=== PATIENT | female | born 1995 | race Caucasian/White ===

== ENCOUNTER → 2016-06-08 | Outpatient (CLI) | payer OTHER ==
[2016-06-08 13:20] LABS: CREATININE RESULT 0.48 mg/dL (0.52-1.25)
== END ==
LOC: OD 12:10
PROVIDERS: ATTEND Registered Nurse Women's Health Care, Ambulatory
DX: O26.839 Pregnancy related renal disease, unspecified trimester (principal); N28.9 Disorder of kidney and ureter, unspecified
CPT/HCPCS: 36415; 82565

== ENCOUNTER → 2016-06-18 | Outpatient (CLI) | payer OTHER ==
[2016-06-18 15:24] LABS: URINE BARBITURATES SCREEN NEGATIVE; URINE METHADONE SCREEN NEGATIVE; URINE OPIATES LOW NEGATIVE; URINE PHENCYCLIDINE SCREEN NEGATIVE
[2016-06-18 15:26] LABS: APPEARANCE,URINE SLIGHTLY-CLOUDY; BILIRUBIN,URINE NEGATIVE (NEGATIVE); GLUCOSE, URINE 50 mg/dL (NEGATIVE); KETONES,URINE NEGATIVE (NEGATIVE); LEUKOCYTE ESTERASE,URINE MODERATE (NEGATIVE); NITRITE,URINE NEGATIVE (NEGATIVE); PROTEIN,URINE NEGATIVE (NEGATIVE); URINE SPECIFIC GRAVITY 1.005; UROBILINOGEN,URINE NEGATIVE mg/dL (<2.0)
--- NOTE | 2016-06-18 16:01 | L&D Flow Sheet ---
LD Flowsheet Datetime Report Generated by CPN: 06/18/2016 16:00 Datetime: 06/18/2016 15:33 Vaginal Exam Dilatation (cm): 3.0 (Emilia Yessenialaluís, RN) Effacement (%): 60 (Emilia Yessenialatt, RN) Station: -1 (Emilia Yessenialaluís, RN) Exam by: Javier Desai CNM (Emiliadavid Conner, RN) Datetime: 06/18/2016 15:26 Patient Care Patient Position/Activity: Left Lateral; Low Fowlers (Emilia Marlatt, RN) Datetime: 06/18/2016 15:22 Assessment A Monitor Interventions for FHR: Ultrasound Adjusted (Emilia Conner, RN) Communication Communication: RN at Bedside (Emilia Yesseniasteff, RN) Datetime: 06/18/2016 15:21 Patient Care Patient Position/Activity: Right Lateral (Emiliadavid Conner, RN) Patient Care Comments: patient requested to be repositioned (Emilia Nicholsonluís, RN) Datetime: 06/18/2016 15:18 Uterine Activity Monitor Interventions for UA: [place] Adjusted (Emilia Casassteff, RN) Assessment A Monitor Interventions for FHR: Ultrasound Adjusted (Emilia Casassteff, RN) Datetime: 06/18/2016 15:16 Vital Signs NBP Sys/Celestina/Mean (mmHg): 99 (QS system process) : 62 (QS system process) : 74 (QS system process) Pulse: 88 (QS system process) Datetime: 06/18/2016 14:50 Frequency (min): 5-7 minutes (Emilia Marlatt, RN) Pain Pain Scale: 3 (Eimlia Yessenialatt, RN) Pain Presence: Intermittent (Emilia Marlatt, RN) Pain Type: Cramping (Emilia Marlatt, RN) Pain Location: Abdomen (Emilia Marlatt, RN) Pain Goal: 1 (Emilia Marlatt, RN) Vaginal Bleeding: None (Emilia Marlatt, RN) Maternal Assessment Level of Consciousness: Fully Conscious (Emilia Yessenialatt, RN) DTR's/Clonus: DTRs 2+; No Clonus (Emilia Marlatt, RN) Headache: Denies (Emilia Marlatt, RN) Breath Sounds, Left: Clear and Equal (Emilia Marlatt, RN) Breath Sounds, Right: Clear and Equal (Emilia Marlatt, RN) Nausea/Vomiting: Denies (Emilia Marlatt, RN) RUQ Epigastric Pain: Denies (Emilia Marlatt, RN) Teaching Instructional Method: Demo; Written; Patient Instructed; Verbalized Understanding (Emilia Conner RN) Plan of Care: Plan of Care Discussed (Emilia Conner RN) Unit Routine: [place] to Room; Call Gonzalez; Bed; Monitoring (Emilia Conner RN) Labor/Induction: Labor Stages (Emilia Conner RN) Datetime: 06/18/2016 14:46 Vital Signs NBP Sys/Celestina/Mean (mmHg): 111 (QS system process) : 63 (QS system process) : 78 (QS system process) Pulse: 96 (QS system process) Datetime: 06/18/2016 14:43 Patient Care Patient Position/Activity: Left Lateral; Low Lynnette Conner RN)
--- NOTE | 2016-06-18 19:01 | L&D Flow Sheet ---
LD Flowsheet Datetime Report Generated by CPN: 06/18/2016 19:00 Datetime: 06/18/2016 15:35 Comments: efm off for discharge to home (Chrissy Camp, RNC) Datetime: 06/18/2016 15:33 Vaginal Exam Dilatation (cm): 3.0 (Emilia Marlatt, RN) Effacement (%): 60 (Emilia Marlatt, RN) Station: -1 (Emilia Marlatt, RN) Exam by: Javier Desai CNM (Emilia Marlatt, RN) Datetime: 06/18/2016 15:26 Patient Care Patient Position/Activity: Left Lateral; Low Fowlers (Emilia Marlatt, RN) Datetime: 06/18/2016 15:22 Monitor Interventions for FHR: Ultrasound Adjusted (Emilia Marlatt, RN) Communication Communication: RN at Bedside (Emilia Marlatt, RN) Datetime: 06/18/2016 15:21 Patient Care Patient Position/Activity: Right Lateral (Emilia Yesseniasteff, RN) Patient Care Comments: patient requested to be repositioned (Emilia Conner, RN) Datetime: 06/18/2016 15:18 Monitor Interventions for UA: [place] Adjusted (Emilia Conner, RN) Monitor Interventions for FHR: Ultrasound Adjusted (Emilia Conner, RN) Datetime: 06/18/2016 15:16 NBP Sys/Celestina/Mean (mmHg): 99 (QS system process) : 62 (QS system process) : 74 (QS system process) Pulse: 88 (QS system process) Respirations: 18 (Chrissy Camp, RNC) Temperature (F): 98.0 (Chrissy Camp, RNC) Temperature (C): 36.7 (QS system process) LaborFlag: Labor (QS system process) Datetime: 06/18/2016 15:15 Uterine Activity Monitor Mode: External; Palpation (Chrissy Camp, RNC) Monitor Interventions for UA: [place] Adjusted (Chrissy Camp, RNC) Frequency (min): intermittent (Chrissy Camp, RNC) Duration (sec): 40-50 (Chrissy Camp, RNC) Resting Tone (Palpate): Relaxed (Chrissy Camp, RNC) Assessment A Monitor Mode: External US; Auscultation (Chrissy Camp, RNC) FHR Baseline Rate : 135 (Chrissy Camp, RNC) FHR Baseline Changes: No Baseline Change (Chrissy Camp, RNC) Variability: Moderate 6-25 bpm (Chrissy Camp, RNC) Accelerations: 15X15 (Chrissy Camp, RNC) Decelerations: None (Chrissy Camp, RNC) Datetime: 06/18/2016 15:00 Uterine Activity Monitor Mode: External; Palpation (Chrissy Camp, RNC) Frequency (min): irregular (Chrissy Camp, RNC) Duration (sec): 40 (Chrissy Camp, RNC) Resting Tone (Palpate): Relaxed (Chrissy Camp, RNC) Assessment A Monitor Mode: External US; Auscultation (Chrissy Camp, RNC) FHR Baseline Rate : 135 (Chrissy Camp, RNC) FHR Baseline Changes: No Baseline Change (Chrissy Camp, RNC) Variability: Moderate 6-25 bpm (Chrissy Camp, RNC) Accelerations: 15X15 (Chrissy Camp, RNC) Decelerations: None (Chrissy Camp, RNC) Datetime: 06/18/2016 14:50 Frequency (min): 5-7 minutes (Emilia Conner, RN) Pain Pain Scale: 3 (Emilia Conner RN) Pain Presence: Intermittent (Emilia Conner RN) Pain Type: Cramping (Emilia Conner RN) Pain Location: Abdomen (Emilia Conner RN) Pain Goal: 1 (Emilia Conner RN) Vaginal Bleeding: None (Emilia Conner, RN) Maternal Assessment Level of Consciousness: Fully Conscious (Emilia Conner, RN) DTR's/Clonus: DTRs 2+; No Clonus (Emilia Nicholsontt, RN) Headache: Denies (Emilia Nicholsontt, RN) Breath Sounds, Left: Clear and Equal (Emilia Nicholsontt, RN) Breath Sounds, Right: Clear and Equal (Emilia Casaslatt, RN) Nausea/Vomiting: Denies (Emilia Casaslaluís, RN) RUQ Epigastric Pain: Denies (Emilia Casaslatt, RN) Teaching Instructional Method: Demo; Written; Patient Instructed; Verbalized Understanding (Emilia Conner RN) Plan of Care: Plan of Care Discussed (Emilia Conner RN) Unit Routine: [place] to Room; Call Gonzalez; Bed; Monitoring (Emilia Conner RN) Labor/Induction: Labor Stages (Emilia Conner RN) LaborFlag: Labor (QS system process) Datetime: 06/18/2016 14:46 NBP Sys/Celestina/Mean (mmHg): 111 (QS system process) : 63 (QS system process) : 78 (QS system process) Pulse: 96 (QS system process) Respirations: 16 (Chrissy Camp, RNC) LaborFlag: Labor (QS system process) Datetime: 06/18/2016 14:43 Patient Care Patient Position/Activity: Left Lateral; Low Fowlers (Emilia Marlatt, RN) Datetime: 06/18/2016 13:00 Vital Signs Stage of : Labor (Chrissy [place], [facility])
--- NOTE | 2016-06-19 06:01 | L&D Current Admission ---
Current Admit Datetime Report Generated by CPN: 06/19/2016 06:00 ADMISSION INFORMATION Chief Complaint: Contractions (06/18/2016 14:50:Emilia Conner RN)
--- NOTE | 2016-06-19 06:01 | L&D General Admission ---
General Admit Datetime Report Generated by CPN: 06/19/2016 06:00 INFORMATION Patient Age: 20 (06/10/2016 14:49:QS system process) EDC: 07/10/2016 00:00 (06/18/2016 14:40:Emilia Conner RN) : 1 (06/18/2016 14:40:Emilia Conner RN) Para: 0 (06/18/2016 15:47:Chrissy Solis [facility]) Baby, Number in Womb: 1 (06/18/2016 15:47:Chrissy Solis, RNC) CARE Primary Manager Of Exhibitions And Collections: [facility] (06/18/2016 14:40:Emilia Conner, RN) Manager Of Exhibitions And Collections Other: MFM (06/18/2016 14:40:Emilia Casaslatt, RN) ALLERGIES Medication Allergies: No Known Allergies (06/18/2016) (06/18/2016 14:57:QS system process) COMMUNICATION Primary Language: Northern Irish (06/18/2016 14:40:Emilia Casaslatt, RN) DEMOGRAPHICS Address: [address] [place] [id number] (06/10/2016 14:49:QS system process) Zipcode: [address] (06/10/2016 14:49:QS system process) Home (06/10/2016 14:49:QS system process) SSN: [id number] (06/10/2016 14:49:QS system process) Next of Kin Name: LUCIA SOLIS (06/10/2016 14:49:QS system process) Next of Kin (06/10/2016 14:49:QS system process) Next of Kin Relationship: SPO (06/10/2016 14:49:QS system process) Date of : 1995 (06/10/2016 14:49:QS system process) Marital Status: (06/10/2016 14:49:QS system process) Sex: Female (06/10/2016 14:49:QS system process) Race: (06/10/2016 14:49:QS system process) Ethnicity: Non- or (06/10/2016 14:49:QS system process) Baptist: No Yarsani Info Avail. (06/10/2016 14:49:QS system process)
== END ==
LOC: LC 14:27
PROVIDERS: ATTEND Obstetrics & Gynecology
PROC: 4A1HXCZ Monitoring of Products of Conception, Cardiac Rate, External Approach (ICD-10-PCS; principal; 2016-06-18)
DX: O26.893 Other specified pregnancy related conditions, third trimester (principal); R10.9 Unspecified abdominal pain; Z3A.36 36 weeks gestation of pregnancy
CPT/HCPCS: 59025; 80307; 81001

== ENCOUNTER 2016-06-24 14:41 | Outpatient (CLI) | payer OTHER ==
[2016-06-24 15:33] LABS: APPEARANCE,URINE SLIGHTLY-CLOUDY; BILIRUBIN,URINE NEGATIVE (NEGATIVE); GLUCOSE, URINE NEGATIVE (NEGATIVE); KETONES,URINE 20 mg/dL (NEGATIVE); LEUKOCYTE ESTERASE,URINE TRACE (NEGATIVE); NITRITE,URINE NEGATIVE (NEGATIVE); PROTEIN,URINE 30 mg/dL (NEGATIVE); URINE SPECIFIC GRAVITY 1.017; UROBILINOGEN,URINE NEGATIVE mg/dL (<2.0)
[2016-06-24 15:51] LABS: URINE BARBITURATES SCREEN NEGATIVE; URINE METHADONE SCREEN NEGATIVE; URINE OPIATES LOW NEGATIVE; URINE PHENCYCLIDINE SCREEN NEGATIVE
--- NOTE | 2016-06-24 16:00 | L&D Flow Sheet ---
LD Flowsheet Datetime Report Generated by CPN: 06/24/2016 16:00 Datetime: 06/24/2016 15:55 Teaching Instructional Method: Verbal; Written; Patient Instructed; Verbalized Understanding (Amena Felipe RN) Teaching Comments: Reviewed and signed kick counts and term instruction. Pt encouraged to return for decreased FM, suspected SROM, bleeding like a period, regular and strong contractions. Pt verbalized understanding and denies needs. Pt states she is comfortable returning home. (Amena Vitrano, RN) Datetime: 06/24/2016 15:53 Exam by: R. MILAGRO Felipe (Amena Felipe RN) Vaginal Exam Comments: SVE unchanged (Amena MILAGRO Felipe) Datetime: 06/24/2016 15:52 Teaching Instructional Method: Verbal; Patient Instructed; Verbalized Understanding (Amena Felipe RN) Plan of Care: Plan of Care Discussed (Amena Felipe RN) Teaching Comments: Reviewed provider orders. Pt requesting repeat SVE. (Amena Vitrano, RN) Datetime: 06/24/2016 15:47 Fern: Negative (Amena Vitrano, RN) Communication Communication: Provider Orders Received (Amena Felipe RN) Communication Comments: Dr. Savage on unit, reviewed strip. Report given including EGA 37.5, , pt complaints, nursing assessment, pt history, toco tracing, FHTs, SVE and SVE unchanged from A visit this AM. Reviewed urine results and negative Fern. Orders received to d/c pt home for intact membranes. No need to repeat SVE. (Amena Felipe, RN) Datetime: 06/24/2016 15:25 Vital Signs NBP Sys/Celestina/Mean (mmHg): 130 (QS system process) : 78 (QS system process) : 98 (QS system process) Pulse: 92 (QS system process) Respirations: 16 (Amena Vitrano, RN) LaborFlag: Labor (QS system process) Datetime: 06/24/2016 15:18 Monitor Interventions for FHR: Ultrasound Adjusted (Amena Vitrano, RN) Datetime: 06/24/2016 15:16 Monitor Interventions for UA: [place] Adjusted (Amena Vitrano, RN) Monitor Interventions for FHR: Ultrasound Adjusted (Amena Vitrano, RN) Patient Care Patient Position/Activity: Left Lateral (Amena Vitrano, RN) Datetime: 06/24/2016 15:15 Uterine Activity Monitor Mode: External; Palpation (Amena Vitrano, RN) Frequency (min): Irregular (Amena Vitrano, RN) Quality: Mild (Amena Vitrano, RN) Duration (sec): 50-70 (Amena Vitrano, RN) Duration Criteria: Less than Two 120 Second Contractions (Amena Vitrano, RN) Pattern: Tachysystole: > 5 Contractions in 10 Minutes (Amena Vitrano, RN) Resting Tone (Palpate): Relaxed (Amena Vitrano, RN) Assessment A Monitor Mode: External US (Amena Vitrano, RN) FHR Baseline Rate : 135 (Amena Vitrano, RN) Variability: Moderate 6-25 bpm (Amena Vitrano, RN) Accelerations: 15X15 (Amena Vitrano, RN) Decelerations: None (Amena Vitrano, RN) Datetime: 06/24/2016 15:12 Monitor Interventions for FHR: Ultrasound Adjusted (Amena Vitrano, RN) Datetime: 06/24/2016 15:07 Vaginal Exam Dilatation (cm): 3.0 (Amena Vitrano, RN) Effacement (%): 60 (Amena Vitrano, RN) Station: -1 (Amena Vitrano, RN) Exam by: R. Vitrano, RN (Amena Vitrano, RN) Datetime: 06/24/2016 15:04 Membrane Comments: Fern collected (Amena Vitrano, RN) Datetime: 06/24/2016 15:01 Membrane Comments: [place] bloody mucus noted on Amnisure swab; orders obtained to collect Fern (Amena Destinee, RN) Datetime: 06/24/2016 15:00 Frequency (min): q 5 (Amena Destinee, MILAGRO) Pain Pain Scale: 2 (Amena Felipe RN) Pain Presence: Intermittent (Amena Destinee, RN) Pain Type: Cramping; Contraction (Amena Destinee, RN) Pain Location: Abdomen; Back (Amena Felipe, RN) Pain Relief Measures: Comfort Measures (Amena Felipe, MILAGRO) Pain Coping: Talking Through Contractions (Amena Vitrano, RN) Vaginal Bleeding: None (Amena Vitrano, RN) Maternal Assessment Level of Consciousness: Fully Conscious (Amena Vitrano, RN) DTR's/Clonus: DTRs 2+; No Clonus (Amena Vitrano, RN) Headache: Denies (Amena Vitrano, RN) Breath Sounds, Left: Clear and Equal (Amena Vitrano, RN) Breath Sounds, Right: Clear and Equal (Amena Vitrano, RN) Nausea/Vomiting: Denies (Amena Vitrano, RN) RUQ Epigastric Pain: Denies (Amena Vitrano, RN) LaborFlag: Labor (QS system process) Datetime: 06/24/2016 14:55 Vital Signs NBP Sys/Celestina/Mean (mmHg): 123 (QS system process) : 73 (QS system process) : 92 (QS system process) Pulse: 95 (QS system process) Respirations: 16 (Amena Vitrano, RN) LaborFlag: Labor (QS system process) Datetime: 06/24/2016 14:54 Patient Care Patient Position/Activity: Right Tilt; Semi-Fowlers (Amena Vitrano, RN) I/O Interventions: Clear Liquids Given (Amena Vitrano, RN) Teaching Instructional Method: Verbal; Patient Instructed; Family/Support Person Instructed; Verbalized Understanding (Amena Felipe RN) Plan of Care: Plan of Care Discussed (Amena Felipe RN) Unit Routine: [place] to Room; Call Gonzalez; Bed; Unit Personnel; Monitoring; Safety/Fall Risk Prevention; Bathroom Privileges (Amena Felipe RN)
== END 2016-06-24 16:00 | disposition home or self-care (01) ==
LOC: LC 14:41
PROVIDERS: ATTEND Obstetrics & Gynecology
PROC: 4A1HXCZ Monitoring of Products of Conception, Cardiac Rate, External Approach (ICD-10-PCS; principal; 2016-06-24)
DX: O47.1 False labor at or after 37 completed weeks of gestation (principal); Z3A.37 37 weeks gestation of pregnancy
CPT/HCPCS: 59025; 81005; 80307; Q0114

== ENCOUNTER 2016-07-14 14:49 | Inpatient (IN) | payer OTHER ==
[2016-07-15] MEDS ORDERED: RINGERS SOLUTION,LACTATED 300 ML IV ONE (05:27)
[2016-07-15] MEDS ORDERED: OXYTOCIN/NORMAL SALINE 1,000 ML IV PRN ×2 (05:27→17:34)
[2016-07-15] MEDS ORDERED: RINGERS SOLUTION,LACTATED 1,000 ML IV PRN (05:27)
[2016-07-15] MEDS ORDERED: ACETAMINOPHEN 325 MG TABLET PO PRN (05:29)
[2016-07-15] MEDS ORDERED: MAG HYDROX/AL HYDROX/SIMETH SUSP 30 ML UDCUP PO PRN (05:29)
[2016-07-15 05:57] LABS: MEAN CORPUSCULAR VOLUME 89 fl (80-97)
[2016-07-15 06:05] LABS: APPEARANCE,URINE CLOUDY; BILIRUBIN,URINE NEGATIVE (NEGATIVE); GLUCOSE, URINE 150 mg/dL (NEGATIVE); KETONES,URINE NEGATIVE (NEGATIVE); LEUKOCYTE ESTERASE,URINE TRACE (NEGATIVE); NITRITE,URINE NEGATIVE (NEGATIVE); PROTEIN,URINE 30 mg/dL (NEGATIVE); URINE SPECIFIC GRAVITY 1.017; UROBILINOGEN,URINE NEGATIVE mg/dL (<2.0)
[2016-07-15 06:05] LABS: ABSOLUTE EOSINOPHILS # (AUTO) 0.1 10^3/uL (0.0-0.6); ABSOLUTE LYMPHOCYTES (AUTO) 1.8 10^3/uL (0.5-4.7); ABSOLUTE MONOCYTES (AUTO) 0.7 10^3/uL (0.1-1.4); ABSOLUTE NEUT (AUTO) 6.6 10^3/uL (1.7-8.2); BASOPHILS % (AUTO) 0.2 % (0-2); EOSINOPHILS % (AUTO) 0.7 % (0-6); HEMATOCRIT 35.7 % (36.0-47.0); HEMOGLOBIN 12.3 g/dL (12.0-15.5); HGB HCT DIFFERENCE 1.2; MEAN CORPUSCULAR HEMOGLOBIN 30.5 pg (27.0-33.4); MEAN CORPUSCULAR HGB CONC 34.4 g/dL (32.0-36.0); MONOCYTES % (AUTO) 7.2 % (3-13); RED BLOOD COUNT 4.03 10^6/uL (3.72-5.28); RED CELL DISTRIBUTION WIDTH 13.4 % (11.5-14.0); SEGMENTED NEUTROPHILS % (AUTO) 71.9 % (42-78); WHITE BLOOD COUNT 9.1 10^3/uL (4.0-10.5)
[2016-07-15] MEDS ORDERED: OXYTOCIN/NORMAL SALINE 20 UNIT/1,000 ML RTUINJ ONE ×2 (06:08→11:52)
[2016-07-15 06:22] LABS: URINE BARBITURATES SCREEN NEGATIVE; URINE METHADONE SCREEN NEGATIVE; URINE OPIATES LOW NEGATIVE; URINE PHENCYCLIDINE SCREEN NEGATIVE
--- NOTE | 2016-07-15 08:00 | L&D Flow Sheet ---
LD Flowsheet Datetime Report Generated by CPN: 07/15/2016 08:00 Datetime: 07/15/2016 07:34 Vital Signs NBP Sys/Celestina/Mean (mmHg): 121 (QS system process) : 66 (QS system process) : 87 (QS system process) Pulse: 84 (QS system process) Respirations: 16 (Jacqueline Wang RN) Temperature (F): 97.6 (Jacqueline Wang RN) Temperature (C): 36.4 (QS system process) Temperature Route: Oral (Jacqueline Halsmer, RN) Pain Pain Scale: 0 (Jacqueline Halsmer, RN) Pain Presence: None/Denies (Jacqueline Halsmer, RN) Pain Type: N/A (Jacqueline Halsmer, RN) Communication LaborFlag: Labor (QS system process) Datetime: 07/15/2016 07:30 Uterine Activity Monitor Mode: External (Jacqueline Halsmer, RN) Frequency (min): none per toco (Jacqueline Halsmer, RN) Resting Tone (Palpate): Relaxed (Jacqueline Halsmer, RN) Assessment A Monitor Mode: External US (Jacqueline Halsmer, RN) FHR Baseline Rate : 140 (Jacqueline Halsmer, RN) Variability: Moderate 6-25 bpm (Jacqueline Halsmer, RN) Decelerations: None (Jacqueline Halsmer, RN) Medications Pitocin (milliunit): Pitocin Increased to (milliunits) @ (Annotations: 6) (Jacqueline Halsmer, RN) Datetime: 07/15/2016 07:15 Uterine Activity Monitor Mode: External (Jacqueline Halsmer, RN) Frequency (min): none per toco (Jacqueline Halsmer, RN) Resting Tone (Palpate): Relaxed (Jacqueline Halsmer, RN) Assessment A Monitor Mode: External US (Jacqueline Halsmer, RN) FHR Baseline Rate : 140 (Jacqueline Halsmer, RN) FHR Baseline Changes: No Baseline Change (Jacqueline Halsmer, RN) Variability: Moderate 6-25 bpm (Jacqueline Halsmer, RN) Decelerations: None (Jacqueline Halsmer, RN) Medications Pitocin (milliunit): Pitocin Increased to (milliunits) @ (Annotations: 4) (Jacqueline Halsmer, RN) Datetime: 07/15/2016 07:04 Vital Signs NBP Sys/Celestina/Mean (mmHg): 120 (QS system process) : 67 (QS system process) : 89 (QS system process) Pulse: 87 (QS system process) Respirations: 18 (Jacqueline Halsmer, RN) Communication LaborFlag: Labor (QS system process) Datetime: 07/15/2016 06:46 Patient Care Comments: patient up to the restroom (Sherice Smith) Datetime: 07/15/2016 06:38 Medications Pitocin (milliunit): Pitocin Started (milliunits) @ (Annotations: 2 ) (Sherice Smith) Datetime: 07/15/2016 06:30 Respirations: 18 (Sherice Smith) Uterine Activity Monitor Mode: External; Palpation (Sherice Smith) Monitor Interventions for UA: [place] Adjusted (Sherice Smith) Frequency (min): occasional (Sherice Smith) Quality: Mild (Sherice Smith) Resting Tone (Palpate): Relaxed (Sherice Smith) Assessment A Monitor Mode: External US (Sherice Smith) Monitor Interventions for FHR: Ultrasound Adjusted (Sherice Smith) FHR Baseline Rate : 140 (Shreice Smith) FHR Baseline Changes: No Baseline Change (Sherice Smith) Variability: Moderate 6-25 bpm (Sherice Smith) Accelerations: 15X15 (Sherice Smith) Decelerations: None (Sherice Smith) Vaginal Exam Dilatation (cm): 3.0 (Sherice Smith) Effacement (%): 70 (Sherice Smith) Station: -3 (Sherice Smith) Exam by: Johann Smith Rn (Sherice Smith) Patient Position/Activity: Left Tilt (Sherice Smith) Communication LaborFlag: Labor (QS system process) Datetime: 07/15/2016 06:05 Vital Signs NBP Sys/Celestina/Mean (mmHg): 103 (QS system process) : 65 (QS system process) : 78 (QS system process) Pulse: 92 (QS system process) Communication LaborFlag: Labor (QS system process) Datetime: 07/15/2016 06:00 Respirations: 18 (Hserice Smith) Uterine Activity Monitor Mode: External; Palpation (Sherice Smith) Monitor Interventions for UA: [place] Adjusted (Sherice Smith) Frequency (min): occasional (Sherice Smith) Quality: Mild (Sherice Smith) Resting Tone (Palpate): Relaxed (Sherice Smith) Assessment A Monitor Mode: External US (Sherice Smith) Monitor Interventions for FHR: Ultrasound Adjusted (Sherice Smith) FHR Baseline Rate : 130 (Sherice Smith) FHR Baseline Changes: No Baseline Change (Sherice Smith) Variability: Moderate 6-25 bpm (Sherice Smith) Accelerations: 15X15 (Sherice Smith) Decelerations: None (Sherice Smith) Patient Position/Activity: Right Tilt (Sherice Smith) Communication LaborFlag: Labor (QS system process) Datetime: 07/15/2016 05:42 Pain Pain Scale: 0 (Sherice Smith) Pain Presence: None/Denies (Sherice Smith) Membrane Status: Intact (Sherice Smith) Vaginal Bleeding: None (Sherice Smith) Maternal Assessment Level of Consciousness: Fully Conscious (Sherice Smith) DTR's/Clonus: DTRs 2+; No Clonus (Sherice Smith) Headache: Denies (Sherice Smith) Breath Sounds, Left: Clear and Equal (Sherice Smith) Breath Sounds, Right: Clear and Equal (Sherice Smith) Nausea/Vomiting: Denies (Sherice Smith) RUQ Epigastric Pain: Denies (Sherice Smith) Patient Position/Activity: Right Tilt (Sherice Smith) Teaching Instructional Method: Verbal (Sherice Smith) Plan of Care: Plan of Care Discussed; Vaginal Delivery (Sherice Smith) Unit Routine: [place] to Room; Call Gonzalez; Bed; Visiting Policy; Waiting Areas; Security; Phone/Cell Phone Use; Photography; Unit Personnel; Consents Signed; Handwashing; Flu/Illness Precautions; Monitoring; IV Pumps; Safety/Fall Risk Prevention; Diet/Nutrition Services; Bathroom Privileges; Routine Time Outs; Medications (Sherice Smith) Communication LaborFlag: Labor (QS system process) Datetime: 07/15/2016 05:38 Patient Care IV/Blood Work: IV Started; IV Bolus Started (Annotations: 18 g RFA) (Sherice Smith) Datetime: 07/15/2016 05:34 Vital Signs NBP Sys/Celestina/Mean (mmHg): 115 (QS system process) : 61 (QS system process) : 79 (QS system process) Pulse: 98 (QS system process) Communication LaborFlag: Labor (QS system process)
--- NOTE | 2016-07-15 10:00 | L&D Flow Sheet ---
LD Flowsheet Datetime Report Generated by CPN: 07/15/2016 10:00 Datetime: 07/15/2016 09:45 Pitocin (milliunit): Pitocin Remains (milliunits) @ (Annotations: 14) (Jacqueline Halsmer, RN) Datetime: 07/15/2016 09:35 NBP Sys/Celestina/Mean (mmHg): 114 (QS system process) : 55 (QS system process) : 77 (QS system process) Pulse: 84 (QS system process) Respirations: 18 (Jacqueline Halsmer, RN) Pain Scale: 3 (Jacqueline Wang RN) Pain Presence: Intermittent (Jacqueline Wang RN) Pain Type: Stabbing (Jacqueline Wang RN) Pain Location: Right Hip; Left Hip (Jacqueline Wang RN) Pain Goal: 0 (Jacqueline Wang RN) Pain Relief Measures: Comfort Measures (Annotations: PT DESIRES TO NOT HAVE EPIDURAL ) (Jacqueline Wang RN) Pain Coping: Talking Through Contractions; Breathing Through Contractions (Jacqueline Wang RN) LaborFlag: Labor (QS system process) Datetime: 07/15/2016 09:30 Monitor Mode: External; Palpation (Jacqueline Wang RN) Frequency (min): 2-3 (Jacqueline Wang RN) Quality: Mild/Moderate (Jacqueline Wang RN) Duration (sec): 40-60 (Jacqueline Wang RN) Duration Criteria: Less than Two 120 Second Contractions (Jacqueline Wang RN) Resting Tone (Palpate): Relaxed (Jacqueline Wang RN) Monitor Mode: Internal Scalp Electrode (Jacqueline Wang RN) FHR Baseline Rate : 140 (Jacqueline Wang RN) FHR Baseline Changes: No Baseline Change (Jacqueline Wang RN) Variability: Moderate 6-25 bpm (Jacqueline Wang RN) Decelerations: None (Jacqueline Wang RN) Pitocin (milliunit): Pitocin Remains (milliunits) @ (Annotations: 14) (Jacqueline Wang RN) Datetime: 07/15/2016 09:15 Monitor Mode: External (Jacqueline Halsmer, RN) Frequency (min): 2-3 (Jacqueline Halsmer, RN) Quality: Mild (Jacqueline Halsmer, RN) Duration (sec): 40-60 (Jacqueline Halsmer, RN) Duration Criteria: Less than Two 120 Second Contractions (Jacqueline Halsmer, RN) Pattern: Normal: <= 5 Contractions in 10 Minutes (Jacqueline Halsmer, RN) Resting Tone (Palpate): Relaxed (Jacqueline Halsmer, RN) Monitor Mode: Internal Scalp Electrode (Jacqueline Halsmer, RN) FHR Baseline Rate : 140 (Jacqueline Halsmer, RN) FHR Baseline Changes: No Baseline Change (Jacqueline Halsmer, RN) Variability: Moderate 6-25 bpm (Jacqueline Halsmer, RN) Decelerations: None (Jacqueline Halsmer, RN) Pitocin (milliunit): Pitocin Remains (milliunits) @ (Annotations: 14) (Jacqueline Halsmer, RN) Datetime: 07/15/2016 09:13 I/O Interventions: Up to BR (Jacqueline Halsmer, RN) Datetime: 07/15/2016 09:05 NBP Sys/Celestina/Mean (mmHg): 116 (QS system process) : 79 (QS system process) : 95 (QS system process) Pulse: 77 (QS system process) Respirations: 16 (Jacqueline Halsmer, RN) LaborFlag: Labor (QS system process) Datetime: 07/15/2016 09:02 Comments: FSE REPLACED PER CNM (Jacqueline Halsmer, RN) Hygiene: Underpad Changed (Jacqueline Halsmer, RN) Datetime: 07/15/2016 09:00 Monitor Mode: External (Jacqueline Halsmer, RN) Frequency (min): 2-4 (Jacqueline Halsmer, RN) Quality: Mild (Jacqueline Halsmer, RN) Duration (sec): 40-60 (Jacqueline Halsmer, RN) Resting Tone (Palpate): Relaxed (Jacqueline Halsmer, RN) Monitor Mode: Internal Scalp Electrode (Jacqueline Halsmer, RN) FHR Baseline Rate : 140 (Jacqueline Halsmer, RN) FHR Baseline Changes: No Baseline Change (Jacqueline Halsmer, RN) Variability: Minimal - Undetectable to <=5 bpm (Jacqueline Halsmer, RN) Decelerations: None (Jacqueline Halsmer, RN) Pitocin (milliunit): Pitocin Remains (milliunits) @ (Annotations: 14) (Jacqueline Halsmer, RN) Datetime: 07/15/2016 08:55 Monitor Interventions for FHR: FSE Applied (Jacqueline Halsmer, RN) Membrane Status: Ruptured (Jacqueline Halsmer, RN) Membranes Rupture Method: Artificial (Jacqueline Halsmer, RN) Amniotic Fluid Color: Clear (Jacqueline Halsmer, RN) Amniotic Fluid Amount: Large (Jacqueline Halsmer, RN) Amniotic Fluid Odor: Normal (Jacqueline Halsmer, RN) Datetime: 07/15/2016 08:52 Dilatation (cm): 3.0 (Jacqueline Wang, RN) Effacement (%): 90 (Jacqueline Wang, RN) Station: 0 (Jacqueline Wang, RN) Exam by: Rosa ZAMORA CNM (Jacqueline Wang, RN) Datetime: 07/15/2016 08:50 Communication: RN at Bedside; RN Reviewed Strip; Provider at Bedside (Jacqueline Wang RN) Communication Comments: Javier ZAMORA CNM DISCUSSING POC WITH PT AND FAMILY (Jacqueline Wang, MILAGRO) Datetime: 07/15/2016 08:45 Monitor Mode: External (Jacqueline Wang, MILAGRO) Frequency (min): 2-3 (Jacqueline Halsmer, RN) Quality: Mild (Jacqueline Halsmer, RN) Duration (sec): 40-60 (Jacqueline Halsmer, RN) Resting Tone (Palpate): Relaxed (Jacqueline Halsmer, RN) Monitor Mode: External US (Jacqueline Halsmer, RN) FHR Baseline Rate : 140 (Jacqueline Halsmer, RN) FHR Baseline Changes: No Baseline Change (Jacqueline Halsmer, RN) Variability: Moderate 6-25 bpm (Jacqueline Halsmer, RN) Decelerations: None (Jacqueline Halsmer, RN) Pitocin (milliunit): Pitocin Increased to (milliunits) @ (Annotations: 14) (Jacqueline Halsmer, RN) Datetime: 07/15/2016 08:35 NBP Sys/Celestina/Mean (mmHg): 110 (QS system process) : 67 (QS system process) : 83 (QS system process) Pulse: 90 (QS system process) Respirations: 16 (Jacqueline Thorntoner, RN) LaborFlag: Labor (QS system process) Datetime: 07/15/2016 08:30 Monitor Mode: External; Palpation (Jacqueline Halsmer, RN) Frequency (min): 2-3 (Jacqueline Halsmer, RN) Quality: Mild (Jacqueline Halsmer, RN) Duration (sec): 50-80 (Jacqueline Halsmer, RN) Resting Tone (Palpate): Relaxed (Jacqueline Halsmer, RN) Monitor Mode: External US (Jacqueline Halsmer, RN) FHR Baseline Rate : 150 (Jacqueline Halsmer, RN) FHR Baseline Changes: No Baseline Change (Jacqueline Halsmer, RN) Variability: Moderate 6-25 bpm (Jacqueline Halsmer, RN) Decelerations: None (Jacqueline Halsmer, RN) Pitocin (milliunit): Pitocin Increased to (milliunits) @ (Annotations: 12) (Jacqueline Halsmer, RN) Datetime: 07/15/2016 08:21 Patient Position/Activity: Left Tilt; Tailors (Jacqueline Halsmer, RN) Datetime: 07/15/2016 08:15 Monitor Mode: External (Jacqueline Halsmer, RN) Frequency (min): 3-4 (Jacqueline Thorntoner, RN) Quality: Mild (Jacqueline Halamriker, RN) Duration (sec): 60-90 (Jacqueline Halamriker, RN) Resting Tone (Palpate): Relaxed (Jacqueline Thorntoner, RN) Monitor Mode: Internal Scalp Electrode (Jacqueline Thorntoner, RN) FHR Baseline Rate : 140 (Jacqueline Thorntoner, RN) FHR Baseline Changes: No Baseline Change (Jacqueline Halamriker, RN) Variability: Minimal - Undetectable to <=5 bpm (Jacqueline Halamriker, RN) Decelerations: None (Jacqueline Halamriker, RN) Pitocin (milliunit): Pitocin Increased to (milliunits) @ (Annotations: 10) (Jacquelinevenkat Thorntoner, RN) Datetime: 07/15/2016 08:14 Monitor Interventions for FHR: Ultrasound Adjusted (Jacqueline Wang, RN) Datetime: 07/15/2016 08:09 Patient Care Comments: PT UP IN ROCKING CHAIR. (Jacqueline Halsmer, RN) Datetime: 07/15/2016 08:03 I/O Interventions: Up to BR (Jacqueline Wang, RN) Datetime: 07/15/2016 08:00 Monitor Mode: External (Jacqueline Wang RN) Frequency (min): NONE PER TOCO (Jacqueline Wang RN) Resting Tone (Palpate): Relaxed (Jacqueline Wang RN) Monitor Mode: External US (Jacqueline Wang RN) FHR Baseline Rate : 140 (Jacqueline Wang RN) FHR Baseline Changes: No Baseline Change (Jacqueline Wang RN) Variability: Moderate 6-25 bpm (Jacqueline Wang RN) Accelerations: 15X15 (Jacqueline Wang RN) Decelerations: None (Jacqueline Wang RN) Pitocin (milliunit): Pitocin Increased to (milliunits) @ (Annotations: 8) (Jacqueline Wang RN)
[2016-07-15] MEDS ORDERED: NALBUPHINE HCL INJ 10 MG/1 ML AMPULE ONE (10:16)
[2016-07-15] MEDS ORDERED: PROMETHAZINE HCL INJ 25 MG/1 ML VIAL ONE (10:16)
[2016-07-15] MEDS ORDERED: LIDOCAINE 1% INJ-PF (10 MG/ML) 30 ML SDV ONE ×2 (11:17→11:52)
[2016-07-15] MEDS ORDERED: FENTANYL/BUPIVACAINE/NS/PF 0 MCG/0 ML RTUINJ EPI ONE (11:17)
[2016-07-15] MEDS ORDERED: MISOPROSTOL 0.2 MG TABLET ONE ×2 (11:17→11:51)
[2016-07-15] MEDS ORDERED: EPHEDRINE SULFATE INJ 50 MG/1 ML AMPULE ONE (11:17)
[2016-07-15] MEDS ORDERED: BUPIVACAINE HCL 0.25 % INJ/PF (2.5 MG/1 ML) 30 ML VIAL ONE (11:18)
--- NOTE | 2016-07-15 12:00 | L&D Flow Sheet ---
LD Flowsheet Datetime Report Generated by CPN: 07/15/2016 12:00 Datetime: 07/15/2016 11:55 Pushing: Coached on Pushing (Olamide De La O, RN) Pushing Position: Pushing with Contractions; Pushing Left Side (Olamide De La O, RN) Pushing Progress: Descent with Pushing; Presenting Part Visible (Olamide De La O, RN) Communication Comments: Dr. Lundberg at bedside (Olamide De La O, RN) Datetime: 07/15/2016 11:53 Patient Position/Activity: Left Extreme; Low Fowlers (Olamide Jairon, RN) Datetime: 07/15/2016 11:52 Preparation for Delivery: Perineal Prep Done; Setup for Delivery (Jese Hair, RN) Stage 2 Comments: Nursery D Bellavance RN at bedside (Jeseparvez SalazarLaxmi, RN) Datetime: 07/15/2016 11:51 Patient Position/Activity: Right Extreme; Low Fowlers (Olamide Jairon, RN) Datetime: 07/15/2016 11:50 Actions for Decelerations: Oxygen Applied; IV Bolus (Olamide De La O RN) Communication Comments: Javier Desai CNM at bedside (Olamide De La O RN) Communication Comments: Rosa Desai CNM at bedside (Jese Hair RN) Datetime: 07/15/2016 11:49 IV/Blood Work: IV Bolus Started (Olamide De La O RN) Patient Position/Activity: Hands-Knees (Olamide De La O RN) Datetime: 07/15/2016 11:48 Dilatation (cm): 10.0 (Olamide De La O RN) Effacement (%): 100 (Olamide De La O RN) Pitocin (milliunit): Pitocin Discontinued (Olamide De La O RN) Communication Comments: Javier Desai CNM notified of patient being complete (Oalmide De La O RN) Datetime: 07/15/2016 11:35 NBP Sys/Celestina/Mean (mmHg): 121 (QS system process) : 69 (QS system process) : 90 (QS system process) Pulse: 76 (QS system process) LaborFlag: Labor (QS system process) Datetime: 07/15/2016 11:15 Monitor Mode: External (Jese Salazareet, RN) Frequency (min): 1-2 (Jese Salazareet, RN) Quality: Moderate to Strong (Jese Laxmi, RN) Duration (sec): 60-70 (Jese Laxmi, RN) Resting Tone (Palpate): Relaxed (Jese Salazareet, RN) Monitor Mode: External US (Jese Laxmi, RN) FHR Baseline Rate : 120 (Jese Laxmi, RN) Variability: Moderate 6-25 bpm (Jese Laxmi, RN) Accelerations: None (Jese Laxmi, RN) Decelerations: Early; Variable (Jese Laxmi, RN) Communication: RN Reviewed Strip (Jese Hair, RN) Datetime: 07/15/2016 11:12 IV/Blood Work: IV Bolus Started (Jacqueline Halsmer, RN) Datetime: 07/15/2016 11:11 Pain Coping: Requesting Pain Medication or Epidural (Jacqueline Halsmer, RN) Datetime: 07/15/2016 11:04 NBP Sys/Celestina/Mean (mmHg): 113 (QS system process) : 64 (QS system process) : 83 (QS system process) Pulse: 75 (QS system process) Respirations: 18 (Jacqueline Halsmer, RN) LaborFlag: Labor (QS system process) Datetime: 07/15/2016 11:00 Monitor Mode: External (Jacqueline Halsmer, RN) Frequency (min): 2-3 (Jacqueline Halsmer, RN) Quality: Moderate (Jacqueline Halsmer, RN) Duration (sec): 40-60 (Jacqueline Halsmer, RN) Resting Tone (Palpate): Relaxed (Jacqueline Halsmer, RN) Monitor Mode: Internal Scalp Electrode (Jacqueline Halsmer, RN) FHR Baseline Rate : 120 (Jacqueline Halsmer, RN) FHR Baseline Changes: No Baseline Change (Jacqueline Halsmer, RN) Variability: Minimal - Undetectable to <=5 bpm (Jacqueline Halsmer, RN) Decelerations: Early (Jacqueline Halsmer, RN) Pitocin (milliunit): Pitocin Remains (milliunits) @ (Annotations: 18) (Jacqueline Halsmer, RN) Datetime: 07/15/2016 10:53 Temperature (F): 98.1 (Jacqueline Halsmer, RN) Temperature (C): 36.7 (QS system process) Temperature Route: Axillary (Jacqueline Duff, RN) Pain Scale: 2 (Jacqueline Thorntoner, RN) Pain Presence: Intermittent (Jacqueline Halsmer, RN) Pain Type: Stabbing (Jacqueline Thorntoner, RN) Pain Location: Right Hip; Left Hip (Jacqueline Thorntoner, RN) Pain Relief Measures: Pain Medication Given (Jacqueline Thorntoner, RN) LaborFlag: Labor (QS system process) Datetime: 07/15/2016 10:45 Monitor Mode: External (Jacqueline Thorntoner, RN) Frequency (min): 2-4 (Jacqueline Thorntoner, RN) Quality: Mild/Moderate (Jacqueline Halamriker, RN) Duration (sec): 50-80 (Jacqueline Halsmer, RN) Resting Tone (Palpate): Relaxed (Jacqueline Halamriker, RN) Monitor Mode: Internal Scalp Electrode (Jacqueline Thorntoner, RN) FHR Baseline Rate : 120 (Jacqueline Halamriker, RN) FHR Baseline Changes: No Baseline Change (Jacqueline Halsmer, RN) Variability: Moderate 6-25 bpm (Jacqueline Halsmer, RN) Decelerations: None (Jacqueline Halsmer, RN) Pitocin (milliunit): Pitocin Increased to (milliunits) @ (Annotations: 18) (Jacqueline Halsmer, RN) Datetime: 07/15/2016 10:42 IV/Blood Work: New IV Bag Hung (Jacqueline Halsmer, RN) Datetime: 07/15/2016 10:36 Monitor Interventions for UA: [place] Adjusted (Jacqueline Halsmer, RN) Datetime: 07/15/2016 10:34 NBP Sys/Celestina/Mean (mmHg): 117 (QS system process) : 56 (QS system process) : 81 (QS system process) Pulse: 83 (QS system process) Respirations: 18 (Jacqueline Halsmer, RN) LaborFlag: Labor (QS system process) Datetime: 07/15/2016 10:33 Analgesics/Sedatives: Nubain (mg) @ 10; Phenergan (mg) @ 12.5 (Jacqueline Halsmer, RN) Datetime: 07/15/2016 10:30 Monitor Mode: External; Palpation (Jacqueline Halamriker, RN) Frequency (min): 2-4 (Jacqueline Halsmer, RN) Quality: Mild/Moderate (Jacqueline Halsmer, RN) Duration (sec): 50-90 (Jacqueline Halsmer, RN) Duration Criteria: Less than Two 120 Second Contractions (Jacqueline Halsmer, RN) Resting Tone (Palpate): Relaxed (Jacqueline Halsmer, RN) Monitor Mode: Internal Scalp Electrode (Jacqueline Halsmer, RN) FHR Baseline Rate : 130 (Jacqueline Halsmer, RN) FHR Baseline Changes: No Baseline Change (Jacqueline Halsmer, RN) Variability: Minimal - Undetectable to <=5 bpm (Jacqueline Halsmer, RN) Decelerations: Early (Jacqueline Halsmer, RN) Pitocin (milliunit): Pitocin Remains (milliunits) @ (Annotations: 16) (Jacqueline Halsmer, RN) Datetime: 07/15/2016 10:15 Monitor Mode: External (Jacqueline Thorntoner, RN) Frequency (min): 2-3 (Jacqueline Thorntoner, RN) Quality: Mild/Moderate (Jacqueline Halamriker, RN) Duration (sec): 60-90 (Jacqueline Halamriker, RN) Duration Criteria: Less than Two 120 Second Contractions (Jacqueline Thorntoner, RN) Resting Tone (Palpate): Relaxed (Jacqueline Thorntoner, RN) Monitor Mode: Internal Scalp Electrode (Jacqueline Duff, RN) FHR Baseline Rate : 130 (Jacqueline Norbertoer, RN) FHR Baseline Changes: No Baseline Change (Jacqueline Thorntoner, RN) Variability: Minimal - Undetectable to <=5 bpm (Jacqueline Thorntoner, RN) Decelerations: None (Jacqueline Thorntoner, RN) Pitocin (milliunit): Pitocin Increased to (milliunits) @ (Annotations: 16) (Jacqueline Thorntoner, RN) Datetime: 07/15/2016 10:10 Dilatation (cm): 4.0 (Jacqueline Thorntoner, RN) Effacement (%): 90 (Jacqueline Thorntoner, RN) Station: 0 (Jacqueline Duff, RN) Exam by: Michael DUFF RN (Jacqueline Thorntoner, RN) Datetime: 07/15/2016 10:09 Patient Care Comments: PT MOVED BACK TO BED (Jacqueline Kenamriker, RN) Datetime: 07/15/2016 10:06 Pain Scale: 5 (Jacqueline Duff, [place]) Pain Presence: Intermittent (Jacqueline Duff RN) Pain Type: Sharp (Jacqueline Duff RN) Pain Location: Right Hip; Left Hip (Jacqueline Duff RN) Pain Assessment Comments: PT REQUESTING IV PAIN MEDS (Jacqueline Duff RN) Comfort Measures: Breathing/Relaxation; Coaching; Back Rub Given; Family Support (Jacqueline Duff RN) LaborFlag: Labor (QS system process) Datetime: 07/15/2016 10:00 Monitor Mode: External (Jacqueline Duff RN) Frequency (min): 2-3 (Jacqueline Duff RN) Quality: Moderate (Jacqueline Duff RN) Duration (sec): 80-100 (Jacqueline Duff RN) Duration Criteria: Less than Two 120 Second Contractions (Jacqueline Duff RN) Resting Tone (Palpate): Relaxed (Jacqueline Duff RN) Monitor Mode: Internal Scalp Electrode (Jacqueline Duff RN) FHR Baseline Rate : 140 (Jacqueline Duff RN) FHR Baseline Changes: No Baseline Change (Jacqueline Duff RN) Variability: Moderate 6-25 bpm (Jacqueline Duff RN) Decelerations: None (Jacqueline Duff RN) Pitocin (milliunit): Pitocin Remains (milliunits) @ (Annotations: 14) (Jacqueline Duff RN)
--- NOTE | 2016-07-15 14:00 | L&D Flow Sheet ---
LD Flowsheet Datetime Report Generated by CPN: 07/15/2016 14:00 Datetime: 07/15/2016 13:49 Pushing: Coached on Pushing; Urge to Push (Jacqueline Halsmer, RN) Pushing Position: Pushing with Contractions (Jacqueline Halsmer, RN) Datetime: 07/15/2016 13:45 Pitocin (milliunit): Pitocin Increased to (milliunits) @ (Annotations: 4) (Jacqueline Halsmer, RN) Datetime: 07/15/2016 13:35 NBP Sys/Celestina/Mean (mmHg): 127 (QS system process) : 63 (QS system process) : 90 (QS system process) Pulse: 67 (QS system process) Temperature (F): 98.3 (Jacqueline Wang, MILAG[place]) Temperature (C): 36.8 (QS system process) Temperature Route: Oral (Jacqueline Wang, [place]) LaborFlag: Labor (QS system process) Datetime: 07/15/2016 13:30 Pitocin (milliunit): Pitocin Remains (milliunits) @ (Annotations: 2) (Jacqueline Thorntoner, RN) Datetime: 07/15/2016 13:15 Pitocin (milliunit): Pitocin Started (milliunits) @ (Annotations: 2) (Jacqueline Halsmer, RN) Datetime: 07/15/2016 13:05 I/O Interventions: Up to BR (Jacqueline Halsmer, RN) Datetime: 07/15/2016 13:00 Monitor Mode: External (Jacqueline Halsmer, RN) Frequency (min): 2-3 (Jacqueline Halsmer, RN) Quality: Moderate (Jacqueline Halsmer, RN) Duration (sec): 40-60 (Jacqueline Halsmer, RN) Resting Tone (Palpate): Relaxed (Jacqueline Halsmer, RN) Monitor Mode: Internal Scalp Electrode (Jacqueline Thorntoner, RN) FHR Baseline Rate : 120 (Jacqueline Wang, RN) FHR Baseline Changes: No Baseline Change (Jacqueline Halsmer, RN) Variability: Moderate 6-25 bpm (Jacqueline Halsmer, RN) Accelerations: 15X15 (Jacqueline Halsmer, RN) Decelerations: None (Jacqueline Halsmer, RN) Datetime: 07/15/2016 12:54 Patient Position/Activity: Left Lateral; Peanut Ball (Jacqueline Halsmer, RN) Datetime: 07/15/2016 12:45 Monitor Mode: External (Jacqueline Halsmer, RN) Frequency (min): 2-3 (Jacqueline Halsmer, RN) Quality: Moderate (Jacqueline Halsmer, RN) Duration (sec): 40-60 (Jacqueline Halsmer, RN) Resting Tone (Palpate): Relaxed (Jacqueline Halsmer, RN) Monitor Mode: Internal Scalp Electrode (Jacqueline Halsmer, RN) FHR Baseline Rate : 120 (Jacqueline Halsmer, RN) FHR Baseline Changes: No Baseline Change (Jacqueline Halsmer, RN) Variability: Moderate 6-25 bpm (Jacqueline Halsmer, RN) Decelerations: None (Jacqueline Halsmer, RN) Datetime: 07/15/2016 12:34 NBP Sys/Celestina/Mean (mmHg): 131 (QS system process) : 71 (QS system process) : 93 (QS system process) Pulse: 78 (QS system process) Respirations: 20 (Jacqueline Halsmer, RN) LaborFlag: Labor (QS system process) Datetime: 07/15/2016 12:30 Monitor Mode: External (Jacqueline Halsmer, RN) Frequency (min): 2-3 (Jacqueline Halsmer, RN) Quality: Moderate (Jacqueline Halsmer, RN) Duration (sec): 40-60 (Jacqueline Halsmer, RN) Resting Tone (Palpate): Relaxed (Jacqueline Halsmer, RN) Monitor Mode: Internal Scalp Electrode (Jacqueline Halsmer, RN) FHR Baseline Rate : 120 (Jacqueline Halsmer, RN) FHR Baseline Changes: No Baseline Change (Jacqueline Halsmer, RN) Variability: Moderate 6-25 bpm (Jacqueline Halsmer, RN) Decelerations: Early (Jacqueline Halsmer, RN) Datetime: 07/15/2016 12:15 Monitor Mode: External (Jacqueline Halsmer, RN) Frequency (min): 1-2 (Jacqueline Halsmer, RN) Quality: Moderate to Strong (Jacqueline Halsmer, RN) Duration (sec): 40-60 (Jacqueline Halsmer, RN) Duration Criteria: Less than Two 120 Second Contractions (Jacqueline Halsmer, RN) Resting Tone (Palpate): Relaxed (Jacqueline Halsmer, RN) Monitor Mode: Internal Scalp Electrode (Jacqueline Halsmer, RN) FHR Baseline Rate : 110 (Jacqueline Halsmer, RN) FHR Baseline Changes: No Baseline Change (Jacqueline Halsmer, RN) Variability: Moderate 6-25 bpm (Jacqueline Halsmer, RN) Decelerations: Early (Jacqueline Halsmer, RN) Patient Position/Activity: Right Lateral; Peanut Ball (Jacqueline Halsmer, RN) Hygiene: Underpad Changed (Jacqueline Halsmer, RN) Datetime: 07/15/2016 12:10 Communication Comments: PT TO LABOR DOWN FOR SOME TIME BEFORE PUSHING AGAIN. BABY IN OP POSITION. (Jacqueline Halsmer, RN) Datetime: 07/15/2016 12:05 Pushing Position: Pushing Right Side (Olamide Jairon, RN) Datetime: 07/15/2016 12:01 Pushing: Coached on Pushing (Olamide De La O, RN) Pushing Position: Pushing Lithotomy (Olamide De La O, RN) Pushing Progress: Descent with Pushing (Olamide Jairon, RN) Datetime: 07/15/2016 12:00 Monitor Mode: External (Jacqueline Halsmer, RN) Frequency (min): 1-2 (Jacqueline Wang RN) Quality: Moderate to Strong (Jacqueline Wang RN) Duration (sec): 50-70 (Jacqueline Wang RN) Duration Criteria: Less than Two 120 Second Contractions (Jacqueline Wang RN) Resting Tone (Palpate): Relaxed (Jacqueline Wang RN) Monitor Mode: Internal Scalp Electrode (Jacqueline Wang RN) FHR Baseline Rate : 110 (Jacqueline Wang RN) FHR Baseline Changes: No Baseline Change (Jacqueline Wang RN) Variability: Moderate 6-25 bpm (Jacqueline Wang RN) Decelerations: Prolonged (Jacqueline Wang RN)
[2016-07-15] MEDS ORDERED: PROMETHAZINE HCL INJ 25 MG/1 ML VIAL IV ONE (15:00)
[2016-07-15] MEDS ORDERED: NALBUPHINE HCL INJ 10 MG/1 ML AMPULE IV ONE (15:00)
[2016-07-15] MEDS ORDERED: ACETAMINOPHEN WITH CODEINE #3 TABLET ONE (15:28)
--- NOTE | 2016-07-15 16:00 | L&D Flow Sheet ---
LD Flowsheet Datetime Report Generated by CPN: 07/15/2016 16:00 Datetime: 07/15/2016 15:34 NBP Sys/Celestina/Mean (mmHg): 123 (QS system process) : 60 (QS system process) : 84 (QS system process) Pulse: 89 (QS system process) Datetime: 07/15/2016 15:11 Stage of : (YAO Garcia) Temperature (F): 98.9 (YAO Garcia) Temperature (C): 37.2 (QS system process) Temperature Route: Axillary (YAO Garcia) Pain Scale: 4 (YAO Garcia) Pain Presence: Constant (YAO Garcia) Pain Type: Burning (YAO Garcia) Pain Location: Perineum (YAO Garcia) Datetime: 07/15/2016 14:41 Communication Comments: OF BABY BOY WITH SPONTINEOUS AND LUSTY CRY NOTED . INFANT PLACED ON PT'S ABD WHILE BEING DRIED AND STIMULATED. (YAO Garcia) Datetime: 07/15/2016 14:39 Patient Position/Activity: Right Lateral (YAO Garcia) Preparation for Delivery: Setup for Delivery (YAO Garcia) Stage 2 Comments: Rosa Desai CNM at BS for Delivery (YAO Garcia) Datetime: 07/15/2016 14:38 Patient Position/Activity: Left Lateral (Jocelin Suarez, RNC) Pushing Position: Pushing Left Side (Jocelin Suarez, RNC) Communication Comments: RosaDarius DESAI, CNM AT BEDSIDE FOR DELIVERY (Jocelin Suarez, RNC) Datetime: 07/15/2016 14:35 Communication Comments: CNM CALLED FOR DELIVERY (Jocelin Suarez, RNC) Datetime: 07/15/2016 14:34 Pushing Progress: with Pushing (Jocelin Suarez, RNC) Datetime: 07/15/2016 14:30 Monitor Mode: External (Jocelin Erick, RNC) Frequency (min): 2-3 (Jocelin Erick, RNC) Quality: Strong (Jocelin Erick, RNC) Duration (sec): 40-60 (Jocelin Erick, RNC) Resting Tone (Palpate): Relaxed (Jocelin Erick, RNC) Monitor Mode: Internal Scalp Electrode (Jocelin Erick, RNC) FHR Baseline Rate : 120 (Jocelin Erick, RNC) FHR Baseline Changes: No Baseline Change (Jocelin Erick, RNC) Variability: Moderate 6-25 bpm (Jocelin Erick, RNC) Decelerations: Variable (Jocelin Erick, RNC) Pitocin (milliunit): Pitocin Remains (milliunits) @ (Annotations: 8) (Jocelin Erick, RNC) Datetime: 07/15/2016 14:20 Patient Position/Activity: Hands-Knees (Jacqueline Halsmer, RN) Datetime: 07/15/2016 14:16 Pushing Position: Pushing Standing (Jacqueline Thorntoner, RN) Datetime: 07/15/2016 14:15 Monitor Mode: External (Jocelin Erick, RNC) Frequency (min): 2-3 (Jocelin Erick, RNC) Quality: Strong (Jocelin Erick, RNC) Duration (sec): 50-80 (Jocelin Erick, RNC) Duration Criteria: Less than Two 120 Second Contractions (Jocelin Erick, RNC) Resting Tone (Palpate): Relaxed (Jocelin Erick, RNC) Monitor Mode: Internal Scalp Electrode (Jocelin Erick, RNC) FHR Baseline Rate : 120 (Jocelin Erick, RNC) FHR Baseline Changes: No Baseline Change (Jocelin Erick, RNC) Variability: Moderate 6-25 bpm (Jocelin Erick, RNC) Decelerations: Variable (Jocelin Erick, RNC) Pitocin (milliunit): Pitocin Increased to (milliunits) @ (Annotations: 8) (Jacqueline Halsmer, RN) Datetime: 07/15/2016 14:06 I/O Interventions: Up to BR (Jacqueline Halsmer, RN) Datetime: 07/15/2016 14:05 NBP Sys/Celestina/Mean (mmHg): 125 (QS system process) : 65 (QS system process) : 89 (QS system process) Pulse: 79 (QS system process) Respirations: 20 (YAO Garcia) LaborFlag: Labor (QS system process) Datetime: 07/15/2016 14:00 Monitor Mode: External (Jacqueline Halsmer, RN) Frequency (min): 2-3 (Jacqueline Thorntoner, RN) Quality: Moderate to Strong (Jacqueline Halsmer, RN) Duration (sec): 50-80 (Jacqueline Wang RN) Resting Tone (Palpate): Relaxed (Jacqueline Wang RN) Monitor Mode: Internal Scalp Electrode (Jacqueline Wang RN) FHR Baseline Rate : 120 (Jacqueline Wang RN) FHR Baseline Changes: No Baseline Change (Jacqueline Wang RN) Variability: Moderate 6-25 bpm (Jacqueline Wang RN) Decelerations: Variable (Jacqueline Wang RN) Pitocin (milliunit): Pitocin Increased to (milliunits) @ (Annotations: 6) (Jacqueline Wang RN) Pushing Position: Pushing Squatting (Jacqueline Wang RN)
--- NOTE | 2016-07-15 17:01 | Delivery Summary ---
Del Sum A-C Datetime Report Generated by CPN: 07/15/2016 17:01 ADMISSION DATA Chief Complaint: Scheduled Induction of Labor Indication for Induction: Post Dates Admission Impression: Term, Intrauterine ; No Active Labor Admit Provider Comments: doing well, on pitocin does not plan for epidural male DELIVERY PERSONNEL Delivery Doctor:: Malu Desai CNM Nurse Search Engine Marketing Manager Certified:: Malu Desai CNM Labor and Delivery Nurse:: Jacqueline Duff RNdirector pharmaceutical Nurse:: YAO Thorne Automobile Dealer:: Jocelin Suarez RN Metal Painter/AS400 PROGRAMMER ANALYST: Amirah Florian, FILM LIBRARIAN Metal Painter/AS400 PROGRAMMER ANALYST: Sherice Chappell CNA II MATERNAL INFORMATION Delivery Anesthesia: Local Medications After Delivery: Pitocin Bolus-Please Comment; Pitocin Drip 20 Units/1000ml NSS Maternal Complications: None Provider Comments: SVDVM ENEIDA with compound RT hand over 2*perineal lac and 1*periurethral lacerations. vigorous, to mother abd, cord clamped x 2 cut per FOB. Cord blood collected. Manual placenta removal due to retained placenta. Pt tolerated well, placenta inspected and found to be intact. Apgars 9,9. EBL 300. Cytotec placed rectally after manual placenta removal. LABOR SUMMARY EDC: 07/10/2016 00:00 No. Babies in Womb: 1 Attempted: No Labor Anesthesia: IV Sedation LABOR INFORMATION Reason for Induction: Post Dates Reason for Induction- Other: 40.5 Onset of Labor: 07/15/2016 08:55 Complete Dilatation: 07/15/2016 11:48 Oxytocin: Induction Group B Beta Strep: Negative Antibiotics # of Doses: 0 Steroids Given: None Reason Steroids Not Administered: Not Applicable MEMBRANES Membranes Rupture Method: Artificial Rupture of Membranes: 07/15/2016 08:55 Length of Rupture (hr): 5.77 Amniotic Fluid Color: Clear Amniotic Fluid Amount: Large Amniotic Fluid Odor: Normal STAGES OF LABOR Stage 1 hr: 2 Stage 1 min: 53 Stage 2 hr: 2 Stage 2 min: 53 Stage 3 hr: 0 Stage 3 min: 30 Total Time in Labor hr: 6 Total Time in Labor min: 16 VAGINAL DELIVERY Episiotomy: None Laceration Extension: Second Degree Laceration Type: Perineal Other Laceration: 2-[address] Laceration Repair: Yes Laceration Repair Note: 2.0 Chromic used for 2*perineal laceration, repaired in ususal fashion 1%lidocaine used for repair. Sponge Count Correct: Yes CSECTION DELIVERY Primary Indication: N/A CSection Incision: N/A BABY A INFORMATION Delivery Date/Time: 07/15/2016 14:41 Method of Delivery: Vaginal Born in Route : No : N/A Forceps: N/A Vacuum Extraction: N/A Shoulder Dystocia : No PRESENTATION/POSITION BABY A Presentation: Cephalic Cephalic Presentation: Vertex Vertex Position: Right Occipital Anterior Breech Presentation: N/A PLACENTA INFORMATION BABY A Placenta Delivery Time : 07/15/2016 15:11 Placenta Method of Delivery: Manual Removal Placenta Status: Delivered SCORES BABY A Heart Rate 1 min: >100 bpm Resp Effort 1 min: Good Cry Reflex Irritability 1 min: Cough or Sneeze or Pulls Away Muscle Tone 1 min: Active Motion Color 1 min: Body [place], Extremities Blue Resuscitation Effort 1 min: Tactile Stimulation SCORE 1 MIN: 9 Heart Rate 5 min: >100 bpm Resp Effort 5 min: Good Cry Reflex Irritability 5 min: Cough or Sneeze or Pulls Away Muscle Tone 5 min: Active Motion Color 5 min: Body [place], Extremities Blue Resuscitation Effort 5 min: N/A SCORE 5 MIN: 9 Resuscitation Effort 10 min: N/A INFORMATION BABY A Gestational Age at Delivery: 40.5 Gestational Status: Full Term- 39- 40.6 Weeks Outcome : Liveborn Infant Condition : Stable Infant Sex: Male IDENTIFICATION BABY A Infant Verification Date/Time: 07/15/2016 15:22 ID Band Number: [id number] Mother's Name Verified: Yes RN Verifying Infant: Michael DUFF RN Additional Verifying Personnel: Jonathan ALONSO CNA II WEIGHT/LENGTH BABY A Infant Birthweight (gm): 3165 Infant Weight (lb): 7 Infant Weight (oz): 0 Infant Length (in): 20.50 Infant Length (cm): 52.07 CORD INFORMATION BABY A No. Cord Vessels: 3 Nuchal Cord : N/A Cord Blood Taken: Yes-For Eval (Mom's Blood Type - or O+) Infant Suction: Mouth; Nose ASSESSMENT BABY A Complications: Multiple Variable Decels Physical Findings at Delivery: Caput Succedaneum; Molding of the Head Respirations: Appears Normal Skin to Skin: Yes Skin to Skin Time (min): 60 Dry Cell Assembly Machine Tender/ALS Called : No Care By: D Bellavance CNM Transferred To: Remains with Mother BABY B INFORMATION : N/A SIGNATURES Assignment: Maxwell Lundberg MD Signature: with User ID: [email or web address] : with User ID: [email or web address] : I was personally available for consultation and serving as supervising physician for the [facility].
--- NOTE | 2016-07-15 17:17 | Admission Physical ---
Datetime Report Generated by CPN: 07/15/2016 17:17 CURRENT ADMISSION Chief Complaint: Scheduled Induction of Labor Indication for Induction: Post Dates Admit Plan: Initiate Labor Induction Protocol ALLERGIES Medication Allergies: No Medication Allergies: codeine (07/15/2016) Latex: No Latex Allergies Food Allergies: N/A Environmental Allergies: N/A OBSTETRICAL HISTORY EDC: 07/10/2016 00:00 : 1 Para: 0 Term: 0 : 0 SAB: 0 IAB: 0 Ectopic: 0 Livin Cesareans: 0 VBACs: 0 Multiple Births: 0 Gestational Diabetes: No Rh Sensitization: No Incompetent Cervix: No FABIÁN: No Infertility: No ART Treatment: No Uterine Anomaly: No IUGR: Yes Hx Previous C/S: No Macrosomia: No Hx Loss/Stillborn: No PIH: No Hx : No Placenta Previa/Abruption: No Depression/PP Depression: No PTL/PROM: No Post Hemorrhage: No Current Procedures: Ultrasound Obstetrical History Comments: G1: Current, IUGR 7% SEE RECORDS Alcohol: No Marijuana : No Cocaine: No Other Illicit Drugs: No Cigarettes: Never Smoker. [id number] MEDICAL HISTORY Diabetes: No Blood Transfusion: No Pulmonary Disease (Asthma, TB): No Breast Disease: No Hypertension: No Brick Catcher Surgery: No Heart Disease: No Hosp/Surgery: No Autoimmune Disorder: No Anesthetic Complications: No Kidney Disease: No Abnormal Pap Smear: No Neuro/Epilepsy: No Psychiatric Disorders: No Other Medical Diseases: Yes Hepatitis/Liver Disease: No Significant Family History: No Varicosities/Phlebitis: No Trauma/Violence : No Thyroid Dysfunction: No Medical History Comments: Other: PCOS (Annotations: Data stored by [facility] on behalf of user) INFECTIOUS HISTORY Gonorrhea: No Genital Herpes: No Chlamydia: No Tuberculosis: No Syphilis: No Hepatitis: No HIV/AIDS Exposure: No Rash or Viral Illness: No HPV: No PHYSICAL EXAM General: Normal HEENT: Deferred Neurologic: Normal Thyroid: Deferred Heart: Normal Lungs: Normal Breast: Deferred Back: Normal Abdomen: Normal Genitourinary Exam: Deferred Extremities: Deferred DTRs: Normal Pelvic Type: Adequate VAGINAL EXAM Dilatation: 3 Effacement: 90 Station: 0 MEMBRANES Membranes: Ruptured Amniotic Fluid Color: Clear FETUS A EGA: 40.5 Monitoring: External US FHR- Baseline: 140 Variability: Moderate 6-25bpm Decelerations: None Presentation: Vertex Admit Comment: doing well, on pitocin does not plan for epidural male PLANS FOR LABOR AND DELIVERY Labor and Delivery: None Pain Management: Natural; Medications Feeding Preference: Breast Benefit of Breast Feed Discussed: Yes Circumcision: Yes INFORMED CONSENT Assignment: Maxwell Lundberg MD Signature: with User ID: Patrice : with User ID: [email or web address]
[2016-07-15] MEDS ORDERED: DIPH/PERTUSS(ACELL)/TETANUS VAC/PF 0.5 ML SYR (>=10YO) IM PRN (17:34)
[2016-07-15] MEDS ORDERED: DIBUCAINE 1% OINTMENT 28 GM TP PRN (17:34)
[2016-07-15] MEDS ORDERED: BENZOCAINE/MENTHOL AEROSOL SPRAY 56 ML TOP PRN (17:34)
[2016-07-15] MEDS ORDERED: MEASLES,MUMPS&RUBELLA VACC/PF 0.5 ML VIAL SUBCUT PRN (17:34)
[2016-07-15] MEDS ORDERED: ZOLPIDEM TARTRATE 5 MG TABLET PO PRN (17:34)
[2016-07-15] MEDS: DOCUSATE SODIUM 100 MG CAPSULE PO SCH (18:24)
[2016-07-15] MEDS: FERROUS SULFATE 325 MG TABLET PO SCH (18:24)
--- NOTE | 2016-07-15 19:01 | L&D Flow Sheet ---
LD Flowsheet Datetime Report Generated by CPN: 07/15/2016 19:00 Datetime: 07/15/2016 16:34 NBP Sys/Celestina/Mean (mmHg): 148 (QS system process) : 69 (QS system process) : 99 (QS system process) Pulse: 104 (QS system process) Datetime: 07/15/2016 15:34 NBP Sys/Celestina/Mean (mmHg): 123 (QS system process) : 60 (QS system process) : 84 (QS system process) Pulse: 89 (QS system process) Datetime: 07/15/2016 15:11 [facility] : [facility] Temperature (F): 98.9 (Jocelin Suarez [facility]) Temperature (C): 37.2 (QS system process) Temperature Route: Axillary (Jocelin Suarez [facility]) Pain Scale: 4 (Jocelin Suarez [facility]) Pain Presence: Constant (Jocelin Suarez [facility]) Pain Type: Burning [facility] Pain Location: Perineum ([facility] Datetime: 07/15/2016 14:41 Communication Comments: OF BABY BOY WITH SPONTINEOUS AND LUSTY CRY NOTED . INFANT PLACED ON PT'S ABD WHILE BEING DRIED AND STIMULATED. ([facility] Datetime: 07/15/2016 14:39 Patient Position/Activity: Right Lateral (Jocelin Erick, RNC) Preparation for Delivery: Setup for Delivery (Jocelin Erick, RNC) Stage 2 Comments: Rosa Desai CNAtul at BS for Delivery (Jocelin Erick, RNC) Datetime: 07/15/2016 14:38 Patient Position/Activity: Left Lateral (Jocelin Erick, RNC) Pushing Position: Pushing Left Side (Jocelin Erick, RNC) Communication Comments: Javier DESAINILOAtul AT BEDSIDE FOR DELIVERY (Jocelin Erick, RNC) Datetime: 07/15/2016 14:35 Communication Comments: CNM CALLED FOR DELIVERY (Jocelin Erick, RNC) Datetime: 07/15/2016 14:34 Pushing Progress: with Pushing (Jocelin Suarez, RNC) Datetime: 07/15/2016 14:30 Monitor Mode: External (Jocelin Suarez, RNC) Frequency (min): 2-3 (Jocelin Suarez, RNC) Quality: Strong (Jocelin Suarez, RNC) Duration (sec): 40-60 (Jocelin Suarez, RNC) Resting Tone (Palpate): Relaxed (Jocelin Suarez, RNC) Monitor Mode: Internal Scalp Electrode (Jocelin Suarez, RNC) FHR Baseline Rate : 120 (Jocelin Suarez, RNC) FHR Baseline Changes: No Baseline Change (Jocelin Suarez, RNC) Variability: Moderate 6-25 bpm (Jocelin Suarez, RNC) Decelerations: Variable (Jocelin Suarez, RNC) Pitocin (milliunit): Pitocin Remains (milliunits) @ (Annotations: 8) (Jocelin Suarez, RNC) Datetime: 07/15/2016 14:20 Patient Position/Activity: Hands-Knees (Jacqueline Halsmer, RN) Datetime: 07/15/2016 14:16 Pushing Position: Pushing Standing (Jacqueline Thorntoner, RN) Datetime: 07/15/2016 14:15 Monitor Mode: External (YAO Garcia) Frequency (min): 2-3 (YAO Garcia) Quality: Strong (YAO Garcia) Duration (sec): 50-80 (YAO Garcia) Duration Criteria: Less than Two 120 Second Contractions (YAO Garcia) Resting Tone (Palpate): Relaxed (YAO Garcia) Monitor Mode: Internal Scalp Electrode (YAO Garcia) FHR Baseline Rate : 120 (YAO Garcia) FHR Baseline Changes: No Baseline Change (YAO Garcia) Variability: Moderate 6-25 bpm (YAO Garcia) Decelerations: Variable (YAO Garcia) Pitocin (milliunit): Pitocin Increased to (milliunits) @ (Annotations: 8) (Jacqueline Rogersjd, RN) Datetime: 07/15/2016 14:06 I/O Interventions: Up to BR (Jacqueline Kenjd, RN) Datetime: 07/15/2016 14:05 NBP Sys/Celestina/Mean (mmHg): 125 (QS system process) : 65 (QS system process) : 89 (QS system process) Pulse: 79 (QS system process) Respirations: 20 (YAO Garcia) LaborFlag: Labor (QS system process) Datetime: 07/15/2016 14:00 Monitor Mode: External (Jacqueline Halsmer, RN) Frequency (min): 2-3 (Jacqueline Halsmer, RN) Quality: Moderate to Strong (Jacqueline Halsmer, RN) Duration (sec): 50-80 (Jacqueline Halsmer, RN) Resting Tone (Palpate): Relaxed (Jacqueline Halsmer, RN) Monitor Mode: Internal Scalp Electrode (Jacqueline Halsmer, RN) FHR Baseline Rate : 120 (Jacqueline Halsmer, RN) FHR Baseline Changes: No Baseline Change (Jacqueline Halsmer, RN) Variability: Moderate 6-25 bpm (Jacqueline Halsmer, RN) Decelerations: Variable (Jacqueline Halsmer, RN) Pitocin (milliunit): Pitocin Increased to (milliunits) @ (Annotations: 6) (Jacqueline Halsmer, RN) Pushing Position: Pushing Squatting (Jacqueline Halsmer, RN) Datetime: 07/15/2016 13:56 Actions for Decelerations: Oxygen Applied (Jacqueline Halsmer, RN) Datetime: 07/15/2016 13:53 Pushing Position: Pushing Lithotomy (Jacqueline Halsmer, RN) Datetime: 07/15/2016 13:49 Pushing: Coached on Pushing; Urge to Push (Jacqueline Halsmer, RN) Pushing Position: Pushing with Contractions (Jacqueline Halsmer, RN) Datetime: 07/15/2016 13:45 Monitor Mode: External (Jacqueline Halsmer, RN) Frequency (min): 1.5-3 (Jacqueline Thorntoner, RN) Quality: Moderate to Strong (Jacqueline Halamriker, RN) Duration (sec): 50-80 (Jacqueline Halamriker, RN) Resting Tone (Palpate): Relaxed (Jacqueline Thorntoner, RN) Monitor Mode: Internal Scalp Electrode (Jacqueline Duff, RN) FHR Baseline Rate : 120 (Jacqueline Halamriker, RN) FHR Baseline Changes: No Baseline Change (Jacqueline Halamriker, RN) Variability: Moderate 6-25 bpm (Jacqueline Halsmer, RN) Decelerations: None (Jacqueline Halamriker, RN) Pitocin (milliunit): Pitocin Increased to (milliunits) @ (Annotations: 4) (Jacqueline Thorntoner, RN) Datetime: 07/15/2016 13:35 NBP Sys/Celestina/Mean (mmHg): 127 (QS system process) : 63 (QS system process) : 90 (QS system process) Pulse: 67 (QS system process) Respirations: 20 (YAO Garcia) Temperature (F): 98.3 (Jacqueline Duff, RN) Temperature (C): 36.8 (QS system process) Temperature Route: Oral (Jacqueline Duff, RN) LaborFlag: Labor (QS system process) Datetime: 07/15/2016 13:30 Monitor Mode: External (Jacqueline Halsmer, RN) Frequency (min): 1.5-2 (Jacqueline Halsmer, RN) Quality: Moderate to Strong (Jacqueline Halsmer, RN) Duration (sec): 50-80 (Jacqueline Halsmer, RN) Duration Criteria: Less than Two 120 Second Contractions (Jacqueline Halsmer, RN) Resting Tone (Palpate): Relaxed (Jacqueline Halsmer, RN) Monitor Mode: Internal Scalp Electrode (Jacqueline Halsmer, RN) FHR Baseline Rate : 120 (Jacqueline Halsmer, RN) FHR Baseline Changes: No Baseline Change (Jacqueline Halsmer, RN) Variability: Moderate 6-25 bpm (Jacqueline Halsmer, RN) Decelerations: None (Jacqueline Halsmer, RN) Pitocin (milliunit): Pitocin Remains (milliunits) @ (Annotations: 2) (Jacqueline Halsmer, RN) Datetime: 07/15/2016 13:15 Monitor Mode: External (Jacqueline Halsmer, RN) Frequency (min): 2-3 (Jacqueline Halsmer, RN) Quality: Moderate to Strong (Jacqueline Halsmer, RN) Duration (sec): 50-80 (Jacqueline Halsmer, RN) Resting Tone (Palpate): Relaxed (Jacqueline Halsmer, RN) Monitor Mode: Internal Scalp Electrode (Jacqueline Halsmer, RN) FHR Baseline Rate : 120 (Jacqueline Halsmer, RN) FHR Baseline Changes: No Baseline Change (Jacqueline Halsmer, RN) Variability: Moderate 6-25 bpm (Jacqueline Halsmer, RN) Accelerations: 15X15 (Jacqueline Halsmer, RN) Decelerations: Variable (Jacqueline Halsmer, RN) Pitocin (milliunit): Pitocin Started (milliunits) @ (Annotations: 2) (Jacqueline Halsmer, RN) Datetime: 07/15/2016 13:05 I/O Interventions: Up to BR (Jacqueline Halsmer, RN) Datetime: 07/15/2016 13:00 Monitor Mode: External (Jacqueline Halsmer, RN) Frequency (min): 2-3 (Jacqueline Halsmer, RN) Quality: Moderate (Jacqueline Halsmer, RN) Duration (sec): 40-60 (Jacqueline Halsmer, RN) Resting Tone (Palpate): Relaxed (Jacqueline Halsmer, RN) Monitor Mode: Internal Scalp Electrode (Jacqueline Halsmer, RN) FHR Baseline Rate : 120 (Jacqueline Halsmer, RN) FHR Baseline Changes: No Baseline Change (Jacqueline Halsmer, RN) Variability: Moderate 6-25 bpm (Jacqueline Halsmer, RN) Accelerations: 15X15 (Jacqueline Halsmer, RN) Decelerations: None (Jacqueline Halsmer, RN) Datetime: 07/15/2016 12:54 Patient Position/Activity: Left Lateral; Peanut Ball (Jacqueline Halsmer, RN) Datetime: 07/15/2016 12:45 Monitor Mode: External (Jacqueline Halsmer, RN) Frequency (min): 2-3 (Jacqueline Halsmer, RN) Quality: Moderate (Jacqueline Halsmer, RN) Duration (sec): 40-60 (Jacqueline Halsmer, RN) Resting Tone (Palpate): Relaxed (Jacqueline Halsmer, RN) Monitor Mode: Internal Scalp Electrode (Jacqueline Halsmer, RN) FHR Baseline Rate : 120 (Jacqueline Halsmer, RN) FHR Baseline Changes: No Baseline Change (Jacqueline Halsmer, RN) Variability: Moderate 6-25 bpm (Jacqueline Halsmer, RN) Decelerations: None (Jacqueline Halsmer, RN) Datetime: 07/15/2016 12:34 NBP Sys/Celestina/Mean (mmHg): 131 (QS system process) : 71 (QS system process) : 93 (QS system process) Pulse: 78 (QS system process) Respirations: 20 (Jacqueline Halsmer, RN) LaborFlag: Labor (QS system process) Datetime: 07/15/2016 12:30 Monitor Mode: External (Jacqueline Halsmer, RN) Frequency (min): 2-3 (Jacqueline Halsmer, RN) Quality: Moderate (Jacqueline Halsmer, RN) Duration (sec): 40-60 (Jacqueline Halsmer, RN) Resting Tone (Palpate): Relaxed (Jacqueline Halsmer, RN) Monitor Mode: Internal Scalp Electrode (Jacqueline Halsmer, RN) FHR Baseline Rate : 120 (Jacqueline Halsmer, RN) FHR Baseline Changes: No Baseline Change (Jacqueline Halsmer, RN) Variability: Moderate 6-25 bpm (Jacqueline Halsmer, RN) Decelerations: Early (Jacqueline Halsmer, RN) Datetime: 07/15/2016 12:15 Monitor Mode: External (Jacqueline Halsmer, RN) Frequency (min): 1-2 (Jacqueline Halsmer, RN) Quality: Moderate to Strong (Jacqueline Halsmer, RN) Duration (sec): 40-60 (Jacqueline Halsmer, RN) Duration Criteria: Less than Two 120 Second Contractions (Jacqueline Halsmer, RN) Resting Tone (Palpate): Relaxed (Jacqueline Halsmer, RN) Monitor Mode: Internal Scalp Electrode (Jacqueline Halsmer, RN) FHR Baseline Rate : 110 (Jacqueline Halsmer, RN) FHR Baseline Changes: No Baseline Change (Jacqueline Halsmer, RN) Variability: Moderate 6-25 bpm (Jacqueline Halsmer, RN) Decelerations: Early (Jacqueline Halsmer, RN) Patient Position/Activity: Right Lateral; Peanut Ball (Jacqueline Halsmer, RN) Hygiene: Underpad Changed (Jacqueline Halsmer, RN) Datetime: 07/15/2016 12:10 Communication Comments: PT TO LABOR DOWN FOR SOME TIME BEFORE PUSHING AGAIN. BABY IN OP POSITION. (Jacqueline Halsmer, RN) Datetime: 07/15/2016 12:05 Pushing Position: Pushing Right Side (Olamide Jairon, RN) Datetime: 07/15/2016 12:01 Pushing: Coached on Pushing (Olamide Jairon, RN) Pushing Position: Pushing Lithotomy (Olamide Jairon, RN) Pushing Progress: Descent with Pushing (Olamide Jairon, RN) Datetime: 07/15/2016 12:00 Monitor Mode: External (Jacqueline Halsmer, RN) Frequency (min): 1-2 (Jacqueline Halsmer, RN) Quality: Moderate to Strong (Jacqueline Halsmer, RN) Duration (sec): 50-70 (Jacqueline Halsmer, RN) Duration Criteria: Less than Two 120 Second Contractions (Jacqueline Halsmer, RN) Resting Tone (Palpate): Relaxed (Jacqueline Halsmer, RN) Monitor Mode: Internal Scalp Electrode (Jacqueline Halsmer, RN) FHR Baseline Rate : 110 (Jacqueline Halsmer, RN) FHR Baseline Changes: No Baseline Change (Jacqueline Halsmer, RN) Variability: Moderate 6-25 bpm (Jacqueline Halsmer, RN) Decelerations: Prolonged (Jacqueline Halsmer, RN) Datetime: 07/15/2016 11:55 Pushing: Coached on Pushing (Olamide De La O, RN) Pushing Position: Pushing with Contractions; Pushing Left Side (Olamide De La O RN) Pushing Progress: Descent with Pushing; Presenting Part Visible (Olamide De La O, RN) Communication Comments: Dr. Lundberg at bedside (Olamide De La O, RN) Datetime: 07/15/2016 11:53 Patient Position/Activity: Left Extreme; Low Fowlers (Olamide Jairon, RN) Datetime: 07/15/2016 11:52 Preparation for Delivery: Perineal Prep Done; Setup for Delivery (Jese Hair, RN) Stage 2 Comments: Nursery D Bellavance RN at bedside (Jese Hair, RN) Datetime: 07/15/2016 11:51 Patient Position/Activity: Right Extreme; Low Fowlers (Olamide Jairon, RN) Datetime: 07/15/2016 11:50 Actions for Decelerations: Oxygen Applied; IV Bolus (Olamide De La O RN) Communication Comments: Javier Desai CNM at bedside (Olamide De La O RN) Communication Comments: Rosa Desai CNM at bedside (Jese Hair RN) Datetime: 07/15/2016 11:49 IV/Blood Work: IV Bolus Started (Olamide De La O RN) Patient Position/Activity: Hands-Knees (Olamide De La O RN) Datetime: 07/15/2016 11:48 Dilatation (cm): 10.0 (Olamide De La O RN) Effacement (%): 100 (Olamide De La O RN) Station: 0 (Jacqueline Duff RN) Exam by: Michael DUFF RN (Jacqueline Duff RN) Pitocin (milliunit): Pitocin Discontinued (Olamide De La O RN) Communication Comments: Javier Desai CNM notified of patient being complete (Olamide De La O, MILAG[place]) Datetime: 07/15/2016 11:46 Epidural Positioning: Sitting (Jese Hair RN) Anesthesia Comments: DR WALLACE AT BEDSIDE (Jacqueline Duff RN) Datetime: 07/15/2016 11:45 Monitor Mode: External (Jese Hair RN) Frequency (min): 2-3 (Jese Hair, RN) Quality: Moderate to Strong (Jese Hair, RN) Duration (sec): 50-70 (Jese Hair, RN) Resting Tone (Palpate): Relaxed (Jese Hair RN) Monitor Mode: Internal Scalp Electrode (Jese Hair RN) FHR Baseline Rate : 120 (Jese Hair, RN) Variability: Moderate 6-25 bpm (Jese Hair, RN) Accelerations: None (Jese Hair, RN) Decelerations: Early (Jese Hair RN) Pitocin (milliunit): Pitocin Remains (milliunits) @ (Annotations: 18) (Jacqueline Duff RN) Communication: RN Reviewed Strip (Jeseparvez LegerLaxmiMILAGRO vasquez) Datetime: 07/15/2016 11:44 Anesthesia Comments: Dr Darin at bedside (Jese Legerfleet, [place]) Datetime: 07/15/2016 11:35 NBP Sys/Celestina/Mean (mmHg): 121 (QS system process) : 69 (QS system process) : 90 (QS system process) Pulse: 76 (QS system process) Respirations: 18 (Jacqueline Duff RN) LaborFlag: Labor (QS system process) Datetime: 07/15/2016 11:30 Monitor Mode: External (Jese Laxmi, RN) Frequency (min): 1-2 (Jese Laxmi, RN) Quality: Moderate to Strong (Jese Laxmi, RN) Resting Tone (Palpate): Relaxed (Jese Laxmi, RN) Monitor Mode: Internal Scalp Electrode (Jese Laxmi, RN) FHR Baseline Rate : 120 (Jese Laxmi, RN) Variability: Moderate 6-25 bpm (Jese Laxmi, RN) Accelerations: None (Jese Laxmi, RN) Decelerations: Early (Jese Laxmi, RN) Pitocin (milliunit): Pitocin Remains (milliunits) @ (Annotations: 18) (Jacqueline Duff RN) Communication: RN Reviewed Strip (Jese Laxmi, RN) Datetime: 07/15/2016 11:15 Monitor Mode: External (Jese Laxmi, RN) Frequency (min): 1-2 (Jese Laxmi, RN) Quality: Moderate to Strong (Jese Laxmi, RN) Duration (sec): 60-70 (Jese Laxmi, RN) Resting Tone (Palpate): Relaxed (Jese Laxmi, RN) Monitor Mode: Internal Scalp Electrode (Jese Laxmi, RN) FHR Baseline Rate : 120 (Jese Laxmi, RN) Variability: Moderate 6-25 bpm (Jese Hair, RN) Accelerations: None (Jese Hair, RN) Decelerations: Early; Variable (Jese Hair RN) Pitocin (milliunit): Pitocin Remains (milliunits) @ (Annotations: 18) (Jacqueline Duff, RN) Communication: RN Reviewed Strip (Jese Hair, MIL[place]) Datetime: 07/15/2016 11:12 IV/Blood Work: IV Bolus Started (Jacqueline Thorntoner, RN) Datetime: 07/15/2016 11:11 Pain Coping: Requesting Pain Medication or Epidural (Jacqueline Thorntoner, RN) Datetime: 07/15/2016 11:04 NBP Sys/Celestina/Mean (mmHg): 113 (QS system process) : 64 (QS system process) : 83 (QS system process) Pulse: 75 (QS system process) Respirations: 18 (Jacqueline Halsmer, RN) LaborFlag: Labor (QS system process) Datetime: 07/15/2016 11:00 Monitor Mode: External (Jacqueline Halsmer, RN) Frequency (min): 2-3 (Jacqueline Halsmer, RN) Quality: Moderate (Jacqueline Halsmer, RN) Duration (sec): 40-60 (Jacqueline Halsmer, RN) Resting Tone (Palpate): Relaxed (Jacqueline Halsmer, RN) Monitor Mode: Internal Scalp Electrode (Jacqueline Halsmer, RN) FHR Baseline Rate : 120 (Jacqueline Halsmer, RN) FHR Baseline Changes: No Baseline Change (Jacqueline Halsmer, RN) Variability: Minimal - Undetectable to <=5 bpm (Jacqueline Halsmer, RN) Decelerations: Early (Jacqueline Halsmer, RN) Pitocin (milliunit): Pitocin Remains (milliunits) @ (Annotations: 18) (Jacqueline Halsmer, RN) Datetime: 07/15/2016 10:53 Temperature (F): 98.1 (Jacqueline Halamriker, RN) Temperature (C): 36.7 (QS system process) Temperature Route: Axillary (Jacqueline Duff, RN) Pain Scale: 2 (Jacqueline Duff RN) Pain Presence: Intermittent (Jacqueline Thorntoner, RN) Pain Type: Stabbing (Jacqueline Thorntoner, RN) Pain Location: Right Hip; Left Hip (Jacqueline Thorntoner, RN) Pain Relief Measures: Pain Medication Given (Jacqueline Duff RN) LaborFlag: Labor (QS system process) Datetime: 07/15/2016 10:45 Monitor Mode: External (Jacqueline Halsmer, RN) Frequency (min): 2-4 (Jacqueline Halsmer, RN) Quality: Mild/Moderate (Jacqueline Halsmer, RN) Duration (sec): 50-80 (Jacqueline Halsmer, RN) Resting Tone (Palpate): Relaxed (Jacqueline Halsmer, RN) Monitor Mode: Internal Scalp Electrode (Jacqueline Halsmer, RN) FHR Baseline Rate : 120 (Jacqueline Halsmer, RN) FHR Baseline Changes: No Baseline Change (Jacqueline Halsmer, RN) Variability: Moderate 6-25 bpm (Jacqueline Halsmer, RN) Decelerations: None (Jacqueline Halsmer, RN) Pitocin (milliunit): Pitocin Increased to (milliunits) @ (Annotations: 18) (Jacqueline Halsmer, RN) Datetime: 07/15/2016 10:42 IV/Blood Work: New IV Bag Hung (Jacqueline Halsmer, RN) Datetime: 07/15/2016 10:36 Monitor Interventions for UA: [place] Adjusted (Jacqueline Halsmer, RN) Datetime: 07/15/2016 10:34 NBP Sys/Celestina/Mean (mmHg): 117 (QS system process) : 56 (QS system process) : 81 (QS system process) Pulse: 83 (QS system process) Respirations: 18 (Jacqueline Duff RN) LaborFlag: Labor (QS system process) Datetime: 07/15/2016 10:33 Analgesics/Sedatives: Nubain (mg) @ 10; Phenergan (mg) @ 12.5 (Jacqueline Duff RN) Datetime: 07/15/2016 10:30 Monitor Mode: External; Palpation (Jacqueline Duff RN) Frequency (min): 2-4 (Jacqueline Duff RN) Quality: Mild/Moderate (Jacqueline Duff RN) Duration (sec): 50-90 (Jacqueline Duff RN) Duration Criteria: Less than Two 120 Second Contractions (Jacqueline Duff RN) Resting Tone (Palpate): Relaxed (Jacqueline Duff RN) Monitor Mode: Internal Scalp Electrode (Jacqueline Duff RN) FHR Baseline Rate : 130 (Jacqueline Halsmer, RN) FHR Baseline Changes: No Baseline Change (Jacqueline Halsmer, RN) Variability: Minimal - Undetectable to <=5 bpm (Jacqueline Halsmer, RN) Decelerations: Early (Jacqueline Halsmer, RN) Pitocin (milliunit): Pitocin Remains (milliunits) @ (Annotations: 16) (Jacqueline Halsmer, RN) Datetime: 07/15/2016 10:15 Monitor Mode: External (Jacqueline Halsmer, RN) Frequency (min): 2-3 (Jacqueline Halsmer, RN) Quality: Mild/Moderate (Jacqueline Halsmer, RN) Duration (sec): 60-90 (Jacqueline Halsmer, RN) Duration Criteria: Less than Two 120 Second Contractions (Jacqueline Halsmer, RN) Resting Tone (Palpate): Relaxed (Jacqueline Halsmer, RN) Monitor Mode: Internal Scalp Electrode (Jacqueline Halsmer, RN) FHR Baseline Rate : 130 (Jacqueline Halsmer, RN) FHR Baseline Changes: No Baseline Change (Jacqueline Halsmer, RN) Variability: Minimal - Undetectable to <=5 bpm (Jacqueline Halsmer, RN) Decelerations: None (Jacqueline Halsmer, RN) Pitocin (milliunit): Pitocin Increased to (milliunits) @ (Annotations: 16) (Jacqueline Halsmer, RN) Datetime: 07/15/2016 10:10 Dilatation (cm): 4.0 (Jacqueline Duff, RN) Effacement (%): 90 (Jacqueline Duff, RN) Station: 0 (Jacqueline Duff, RN) Exam by: Michael DUFF RN (Jacqueline Duff, RN) Datetime: 07/15/2016 10:09 Patient Care Comments: PT MOVED BACK TO BED (Jacqueline Duff, [place]) Datetime: 07/15/2016 10:06 Pain Scale: 5 (Jacquelinevenkat Duff, RN) Pain Presence: Intermittent (Jacquelinevenkat Thorntoner, RN) Pain Type: Sharp (Jacqueline Norbertoer, RN) Pain Location: Right Hip; Left Hip (Jacqueline Duff RN) Pain Assessment Comments: PT REQUESTING IV PAIN MEDS (Jacqueline Duff RN) Comfort Measures: Breathing/Relaxation; Coaching; Back Rub Given; Family Support (Jacqueline Duff RN) LaborFlag: Labor (QS system process) Datetime: 07/15/2016 10:00 Monitor Mode: External (Jacqueline Duff RN) Frequency (min): 2-3 (Jacqueline Duff RN) Quality: Moderate (Jacqueline Duff RN) Duration (sec): 80-100 (Jacqueline Duff RN) Duration Criteria: Less than Two 120 Second Contractions (Jacqueline Duff RN) Resting Tone (Palpate): Relaxed (Jacqueline Duff RN) Monitor Mode: Internal Scalp Electrode (Jacqueline Duff RN) FHR Baseline Rate : 140 (Jacqueline Duff RN) FHR Baseline Changes: No Baseline Change (Jacqueline Duff RN) Variability: Moderate 6-25 bpm (Jacqueline Duff RN) Decelerations: None (Jacqueline Duff RN) Pitocin (milliunit): Pitocin Remains (milliunits) @ (Annotations: 14) (Jacqueline Duff RN) Datetime: 07/15/2016 09:58 Patient Position/Activity: Birthing Ball (Jacqueline Halsmer, RN) Datetime: 07/15/2016 09:52 I/O Interventions: Up to BR (Jacqueline Halsmer, RN) Datetime: 07/15/2016 09:45 Monitor Mode: External (Jacqueline Halsmer, RN) Frequency (min): 2-3 (Jacqueline Halsmer, RN) Quality: Moderate (Jacqueline Halsmer, RN) Duration (sec): 70-100 (Jacqueline Halsmer, RN) Resting Tone (Palpate): Relaxed (Jacqueline Halsmer, RN) Monitor Mode: Internal Scalp Electrode (Jacqueline Halsmer, RN) FHR Baseline Rate : 140 (Jacqueline Halsmer, RN) FHR Baseline Changes: No Baseline Change (Jacqueline Halsmer, RN) Variability: Moderate 6-25 bpm (Jacqueline Halsmer, RN) Accelerations: 15X15 (Jacqueline Duff RN) Decelerations: None (Jacqueline Duff RN) Pitocin (milliunit): Pitocin Remains (milliunits) @ (Annotations: 14) (Jacqueline Duff RN) Datetime: 07/15/2016 09:35 NBP Sys/Celestina/Mean (mmHg): 114 (QS system process) : 55 (QS system process) : 77 (QS system process) Pulse: 84 (QS system process) Respirations: 18 (Jacqueline Duff RN) Pain Scale: 3 (Jacqueline Duff RN) Pain Presence: Intermittent (Jacqueline Duff RN) Pain Type: Stabbing (Jacqueline Duff RN) Pain Location: Right Hip; Left Hip (Jacqueline Duff RN) Pain Goal: 0 (Jacqueline Duff RN) Pain Relief Measures: Comfort Measures (Annotations: PT DESIRES TO NOT HAVE EPIDURAL ) (Jacqueline Duff RN) Pain Coping: Talking Through Contractions; Breathing Through Contractions (Jacqueline Duff RN) LaborFlag: Labor (QS system process) Datetime: 07/15/2016 09:30 Monitor Mode: External; Palpation (Jacqueline Halsmer, RN) Frequency (min): 2-3 (Jacqueline Halsmer, RN) Quality: Mild/Moderate (Jacqueline Halsmer, RN) Duration (sec): 40-60 (Jacqueline Halsmer, RN) Duration Criteria: Less than Two 120 Second Contractions (Jacqueline Halsmer, RN) Resting Tone (Palpate): Relaxed (Jacqueline Halsmer, RN) Monitor Mode: Internal Scalp Electrode (Jacqueline Halsmer, RN) FHR Baseline Rate : 140 (Jacqueline Halsmer, RN) FHR Baseline Changes: No Baseline Change (Jacqueline Halsmer, RN) Variability: Moderate 6-25 bpm (Jacqueline Halsmer, RN) Decelerations: None (Jacqueline Halsmer, RN) Pitocin (milliunit): Pitocin Remains (milliunits) @ (Annotations: 14) (Jacqueline Halsmer, RN) Datetime: 07/15/2016 09:15 Monitor Mode: External (Jacqueline Halsmer, RN) Frequency (min): 2-3 (Jacqueline Halsmer, RN) Quality: Mild (Jacqueline Halsmer, RN) Duration (sec): 40-60 (Jacqueline Halsmer, RN) Duration Criteria: Less than Two 120 Second Contractions (Jacqueline Halsmer, RN) Pattern: Normal: <= 5 Contractions in 10 Minutes (Jacqueline Halsmer, RN) Resting Tone (Palpate): Relaxed (Jacqueline Halsmer, RN) Monitor Mode: Internal Scalp Electrode (Jacqueline Halsmer, RN) FHR Baseline Rate : 140 (Jacqueline Thorntoner, RN) FHR Baseline Changes: No Baseline Change (Jacqueline Thorntoner, RN) Variability: Moderate 6-25 bpm (Jacqueline Rogerssmer, RN) Decelerations: None (Jacqueline Thorntoner, RN) Pitocin (milliunit): Pitocin Remains (milliunits) @ (Annotations: 14) (Jacqueline Thorntoner, RN) Datetime: 07/15/2016 09:13 I/O Interventions: Up to BR (Jacqueline Duff, RN) Datetime: 07/15/2016 09:05 NBP Sys/Celestina/Mean (mmHg): 116 (QS system process) : 79 (QS system process) : 95 (QS system process) Pulse: 77 (QS system process) Respirations: 16 (Jacqueline Thorntoner, RN) LaborFlag: Labor (QS system process) Datetime: 07/15/2016 09:02 Comments: FSE REPLACED PER CNM (Jacqueline Halsmer, RN) Hygiene: Underpad Changed (Jacqueline Halsmer, RN) Datetime: 07/15/2016 09:00 Monitor Mode: External (Jacqueline Halsmer, RN) Frequency (min): 2-4 (Jacqueline Halsmer, RN) Quality: Mild (Jacqueline Halsmer, RN) Duration (sec): 40-60 (Jacqueline Halsmer, RN) Resting Tone (Palpate): Relaxed (Jacqueline Halsmer, RN) Monitor Mode: Internal Scalp Electrode (Jacqueline Halsmer, RN) FHR Baseline Rate : 140 (Jacqueline Halsmer, RN) FHR Baseline Changes: No Baseline Change (Jacqueline Halsmer, RN) Variability: Minimal - Undetectable to <=5 bpm (Jacqueline Halsmer, RN) Decelerations: None (Jacqueline Halsmer, RN) Pitocin (milliunit): Pitocin Remains (milliunits) @ (Annotations: 14) (Jacqueline Halsmer, RN) Datetime: 07/15/2016 08:55 Monitor Interventions for FHR: FSE Applied ([facility] ) Membrane Status: Ruptured ([facility] ) Membranes Rupture Method: Artificial ([facility] ) Amniotic Fluid Color: Clear ([facility]) Amniotic Fluid Amount: Large ([facility]) Amniotic Fluid Odor: Normal ([facility]) Datetime: 07/15/2016 08:52 Dilatation (cm): 3.0 ([facility]) Effacement (%): 90 ([facility]) Station: 0 ([facility]) Exam by: Rosa DESAI CNM ([facility]) Datetime: 07/15/2016 08:50 Communication: RN at Bedside; RN Reviewed Strip; Provider at Bedside (Jacqueline Duff RN) Communication Comments: Javier DESAI CNM DISCUSSING POC WITH PT AND FAMILY (Jacqueline Duff RN) Datetime: 07/15/2016 08:45 Monitor Mode: External (Jacqueline Duff RN) Frequency (min): 2-3 (Jacqueline Duff RN) Quality: Mild (Jacqueline Duff RN) Duration (sec): 40-60 (Jacqueline Duff RN) Resting Tone (Palpate): Relaxed (Jacqueline Duff RN) Monitor Mode: External US (Jacqueline Duff RN) FHR Baseline Rate : 140 (Jacqueline Duff RN) FHR Baseline Changes: No Baseline Change (Jacqueline Duff RN) Variability: Moderate 6-25 bpm (Jacqueline Duff RN) Decelerations: None (Jacquelien Duff RN) Pitocin (milliunit): Pitocin Increased to (milliunits) @ (Annotations: 14) (Jacqueline Duff, MILAGRO) Datetime: 07/15/2016 08:35 NBP Sys/Celestina/Mean (mmHg): 110 (QS system process) : 67 (QS system process) : 83 (QS system process) Pulse: 90 (QS system process) Respirations: 16 (Jacqueline Thorntoner, RN) LaborFlag: Labor (QS system process) Datetime: 07/15/2016 08:30 Monitor Mode: External; Palpation (Jacqueline Duff, RN) Frequency (min): 2-3 (Jacqueline Thorntoner, RN) Quality: Mild (Jacqueline Thorntoner, RN) Duration (sec): 50-80 (Jacqueline Thorntoner, RN) Resting Tone (Palpate): Relaxed (Jacqueline Thorntoner, RN) Monitor Mode: External US (Jacqueline Thorntoner, RN) FHR Baseline Rate : 150 (Jacqueline Thorntoner, RN) FHR Baseline Changes: No Baseline Change (Jacqueline Thorntoner, RN) Variability: Moderate 6-25 bpm (Jacqueline Halamriker, RN) Decelerations: None (Jacqueline Thorntoner, RN) Pitocin (milliunit): Pitocin Increased to (milliunits) @ (Annotations: 12) (Jacqueline Thorntoner, RN) Datetime: 07/15/2016 08:21 Patient Position/Activity: Left Tilt; Tailors (Jacqueline Halsmer, RN) Datetime: 07/15/2016 08:15 Monitor Mode: External (Jacqueline Halsmer, RN) Frequency (min): 3-4 (Jacqueline Halsmer, RN) Quality: Mild (Jacqueline Halsmer, RN) Duration (sec): 60-90 (Jacqueline Halsmer, RN) Resting Tone (Palpate): Relaxed (Jacqueline Halsmer, RN) Monitor Mode: Internal Scalp Electrode (Jacqueline Halsmer, RN) FHR Baseline Rate : 140 (Jacqueline Halsmer, RN) FHR Baseline Changes: No Baseline Change (Jacqueline Halsmer, RN) Variability: Minimal - Undetectable to <=5 bpm (Jacqueline Halsmer, RN) Decelerations: None (Jacqueline Halsmer, RN) Pitocin (milliunit): Pitocin Increased to (milliunits) @ (Annotations: 10) (Jacqueline Halsmer, RN) Datetime: 07/15/2016 08:14 Monitor Interventions for FHR: Ultrasound Adjusted (Jacqueline Halsmer, RN) Datetime: 07/15/2016 08:09 Patient Care Comments: PT UP IN ROCKING CHAIR. (Jacqueline Halsmer, RN) Datetime: 07/15/2016 08:03 I/O Interventions: Up to BR (Jacqueline Halsmer, RN) Datetime: 07/15/2016 08:00 Monitor Mode: External (Jacqueline Halsmer, RN) Frequency (min): NONE PER TOCO (Jacqueline Halsmer, RN) Resting Tone (Palpate): Relaxed (Jacqueline Halsmer, RN) Monitor Mode: External US (Jacqueline Halsmer, RN) FHR Baseline Rate : 140 (Jacqueline Halsmer, RN) FHR Baseline Changes: No Baseline Change (Jacqueline Halsmer, RN) Variability: Moderate 6-25 bpm (Jacqueline Halsmer, RN) Accelerations: 15X15 (Jacqueline Halsmer, RN) Decelerations: None (Jacqueline Halsmer, RN) Pitocin (milliunit): Pitocin Increased to (milliunits) @ (Annotations: 8) (Jacqueline Halsmer, RN) Datetime: 07/15/2016 07:45 Pitocin (milliunit): Pitocin Remains (milliunits) @ (Annotations: 6) (Jacqueline Halsmer, RN) Datetime: 07/15/2016 07:34 NBP Sys/Celestina/Mean (mmHg): 121 (QS system process) : 66 (QS system process) : 87 (QS system process) Pulse: 84 (QS system process) Respirations: 16 (Jacqueline Halsmer, RN) Temperature (F): 97.6 (Jacqueline Halamriker, RN) Temperature (C): 36.4 (QS system process) Temperature Route: Oral (Jacqueline Duff, RN) Pain Scale: 0 (Jacqueline Thorntoner, RN) Pain Presence: None/Denies (Jacqueline Thorntoner, RN) Pain Type: N/A (Jacqueline Thorntoner, RN) LaborFlag: Labor (QS system process) Datetime: 07/15/2016 07:30 Monitor Mode: External (Jacqueline Thorntoner, RN) Frequency (min): none per toco (Jacqueline Thorntoner, RN) Resting Tone (Palpate): Relaxed (Jacqueline Thorntoner, RN) Monitor Mode: External US (Jacqueline Thorntoner, RN) FHR Baseline Rate : 140 (Jacqueline Halsmer, RN) Variability: Moderate 6-25 bpm (Jacqueline Halsmer, RN) Decelerations: None (Jacqueline Thorntoner, RN) Pitocin (milliunit): Pitocin Increased to (milliunits) @ (Annotations: 6) (Jacqueline Halamriker, RN) Datetime: 07/15/2016 07:15 Monitor Mode: External (Jacqueline Halsmer, RN) Frequency (min): none per toco (Jacqueline Halsmer, RN) Resting Tone (Palpate): Relaxed (Jacqueline Halsmer, RN) Monitor Mode: External US (Jacqueline Halsmer, RN) FHR Baseline Rate : 140 (Jacqueline Halsmer, RN) FHR Baseline Changes: No Baseline Change (Jacqueline Halsmer, RN) Variability: Moderate 6-25 bpm (Jacqueline Halsmer, RN) Decelerations: None (Jacqueline Halsmer, RN) Pitocin (milliunit): Pitocin Increased to (milliunits) @ (Annotations: 4) (Jacqueline Halsmer, RN) Datetime: 07/15/2016 07:04 NBP Sys/Celestina/Mean (mmHg): 120 (QS system process) : 67 (QS system process) : 89 (QS system process) Pulse: 87 (QS system process) Respirations: 18 (Jacqueline Halsmer, RN) LaborFlag: Labor (QS system process)
[2016-07-15] MEDS: IBUPROFEN 800 MG TABLET PO SCH (21:38)
[2016-07-15] MEDS ORDERED: ACETAMINOPHEN WITH CODEINE #3 TABLET PO PRN (22:08)
[2016-07-16] MEDS: IBUPROFEN 800 MG TABLET PO SCH ×3 (05:50→21:46)
--- NOTE | 2016-07-16 06:00 | L&D Current Admission ---
Current Admit Datetime Report Generated by CPN: 07/16/2016 06:00 ADMISSION INFORMATION Current Admit Date/Time: 07/15/2016 05:40 (07/15/2016 05:42:Sherice Smith) Reason for Admission: Induction of Labor (07/15/2016 05:42:Sherice Smith) Chief Complaint: Scheduled Induction of Labor (07/15/2016 05:42:Sherice Smith) EGA per Dates: 40.5 (07/15/2016 05:42:QS system process) Method of Arrival: Ambulatory (06/24/2016 15:00:Sherice Smith) Admitted From: Home (07/15/2016 05:42:Sherice Smith) Records Available: Yes (07/15/2016 05:42:Sherice Smith) General Admission Information: Reviewed (07/15/2016 05:42:Sherice Smith) General Admission Reviewed By: Johann Smith Rn (07/15/2016 05:42:Sherice Smith) BELONGINGS/ADVANCED DIRECTIVES Valuables/Personal Effects: Cell Phone (07/15/2016 05:42:Jacqueline Wang RN) Other Belongings: see consent sheet (07/15/2016 05:42:Sherice Smith) Disposition of Belongings: Kept with Patient (07/15/2016 05:42:Jacqueline Wang RN) Advance Direct for Healthcare: No, and Wants No Information (07/15/2016 05:42:Jacqueline Wang RN) Durable Power of Blow Molding Machine Operator: No (07/15/2016 05:42:Jacqueline Wang RN) Organ Donor: No (07/15/2016 05:42:Jacqueline Wang RN) Pt Rights Information Given: Yes (07/15/2016 05:42:Jacqueline Wang RN) Pt Understands Pt Rights: Yes (07/15/2016 05:42:Jacqueline Wang RN) LEARNING ASSESSMENT Knowledge Level: Understands L_D Process (07/15/2016 05:42:Sherice Smith) Barriers to Learning: None (07/15/2016 05:42:Sherice Smith) Learning Readiness: Motivated (07/15/2016 05:42:Sherice Smith) Learns Best By: 1 to 1 Instruction (07/15/2016 05:42:Shericeolivia Smith) Learning Needs: Labor and Delivery Process; Pain Management; Symptoms to Report; Treatment Plan; Medication (07/15/2016 05:42:Shericeolivia Smith) DOMESTIC VIOLANCE SCREENING Dom Viol Threatened/Hurt: No (07/15/2016 05:42:Sherice Luis) Hx of Abuse/Neglect past 2yrs: No (07/15/2016 05:42:Sherice Luis) Feel Unsafe Going Home: No (07/15/2016 05:42:Sherice Luis) Addt'l Observ Indicating Abuse: No (07/15/2016 05:42:Sherice Luis) Reason Unable to Complete Screen: N/A, Screen Completed (07/15/2016 05:42:Shericeolivia Smith) Considered Personal Harm/Suicide: No (07/15/2016 05:42:Shericeolivia Smith) NUTRITIONAL/FUNCTIONAL SCREENING Problem with Appetite >5 Days: No (07/15/2016 05:42:Shericeolivia Smith) Chew/Swallow Difficulties: No (07/15/2016 05:42:Shericeolivia Smith) Inappropriate Wt Gain/Loss: No (07/15/2016 05:42:Sherice Smith) Presence Skin Breakdown/Ulcer: No (07/15/2016 05:42:Sherice Smith) Special Diet: No (07/15/2016 05:42:Sherice Smith) Pt Requests Safety Consultant Visit: No (07/15/2016 05:42:Sherice Smith) Hx of Any of the Following?: N/A (07/15/2016 05:42:Sherice Smith) New Diagnosis of: N/A (07/15/2016 05:42:Sherice Smith) Requires Assist w/Ambulation: No (07/15/2016 05:42:Sherice Smith) Uses Assist Device to Ambulate: No (07/15/2016 05:42:Sherice Smith) Pt Requires Help w/ADL's: No (07/15/2016 05:42:Sherice Smith)
--- NOTE | 2016-07-16 06:00 | L&D General Admission ---
General Admit Datetime Report Generated by CPN: 07/16/2016 06:00 INFORMATION Patient Age: 20 (06/10/2016 14:49:QS system process) EDC: 07/10/2016 00:00 (06/18/2016 14:40:Emilia Conner RN) : 1 (06/18/2016 14:40:Emilia Conner RN) Para: 0 (06/18/2016 15:47:YAO Martinez) Term: 0 (06/18/2016 14:40:Amena Felipe RN) : 0 (06/18/2016 14:40:Amena Felipe RN) Spontaneous Abortions: 0 (06/18/2016 14:40:Amena Felipe RN) Induced Abortions: 0 (06/18/2016 14:40:Amena Felipe RN) Livin (06/18/2016 14:40:Amena Felipe RN) Cesareans: 0 (06/18/2016 14:40:Amena Felipe RN) VBACs: 0 (06/18/2016 14:40:Amena Felipe RN) Ectopic: 0 (06/18/2016 14:40:Amena Felipe RN) Multiple Births: 0 (06/18/2016 14:40:Amena Felipe RN) Baby, Number in Womb: 1 (06/18/2016 15:47:Chrissysondra Solis, [facility]) CARE Primary Molded Goods Controls Operator: [facility] (06/18/2016 14:40:Emilia Conner RN) Molded Goods Controls Operator Other: MFM (06/18/2016 14:40:Emilia Conner RN) Month of 1st Visit: 11/2015 (06/18/2016 14:40:Amena Felipe RN) Adequate Care: Yes (06/18/2016 14:40:Amena Felipe RN) Prepregnancy Weight (lb): 209 (06/18/2016 14:40:Amena Felipe RN) Prepregnancy Weight (kg): 95.0 (06/18/2016 14:40:QS system process) Height (in): 61 (07/15/2016 17:36:QS system process) ALLERGIES Medication Allergy: No (06/18/2016 14:40:Amena Felipe RN) Medication Allergies: No Known Allergies (07/15/2016) (07/15/2016 17:36:QS system process) Latex Allergy: No Latex Allergies (06/18/2016 14:40:Amena Felipe RN) Food Allergies: N/A (06/18/2016 14:40:Amena Felipe RN) Environmental Allergies: N/A (06/18/2016 14:40:Amena Felipe RN) COMMUNICATION Primary Language: Beninese (06/18/2016 14:40:Emilia Conner RN) Medical Tx Preferred Language: Beninese (06/18/2016 14:40:Amena Felipe RN) Beninese Communication Ability: Speaks Beninese; Reads Beninese (06/18/2016 14:40:Jacqueline Wang RN) Communication Barrier(s): Other (06/18/2016 14:40:Jacqueline Wang RN) DEMOGRAPHICS Address: [address] [place] [id number] (06/10/2016 14:49:QS system process) Zipcode: [address] (06/10/2016 14:49:QS system process) Home (06/10/2016 14:49:QS system process) SSN: [id number] (06/10/2016 14:49:QS system process) Next of Kin Name: LUCIA SOLIS (06/10/2016 14:49:QS system process) Next of Kin (06/10/2016 14:49:QS system process) Next of Kin Relationship: SPO (06/10/2016 14:49:QS system process) Date of : 1995 (06/10/2016 14:49:QS system process) Marital Status: (06/10/2016 14:49:QS system process) Sex: Female (06/10/2016 14:49:QS system process) Race: (06/10/2016 14:49:QS system process) Ethnicity: Non- or (06/10/2016 14:49:QS system process) Orthodox: No Sikh Info Avail. (06/10/2016 14:49:QS system process) DRUG AND ALCOHOL USE Alcohol: No (06/18/2016 14:40:Amena Felipe RN) Cigarettes: Never Smoker. [id number] (06/18/2016 14:40:Amena Felipe RN) Marijuana: No (06/18/2016 14:40:Amena Felipe RN) Cocaine: No (06/18/2016 14:40:Amena Felipe RN) Other Illicit Drugs: No (06/18/2016 14:40:Amenamerrick Felipe, RN) VACCINE HISTORY Influenza Vaccine: Uncertain (06/18/2016 14:40:Amena Felipe RN) Pneumococcal Vaccine: No (06/18/2016 14:40:Amena Felipe RN) Tetanus Vaccine: Yes (06/18/2016 14:40:Amena Felipe RN) Tdap Vaccine: Yes (06/18/2016 14:40:Amena Felipe RN) Hepatitis B Vaccine: Yes (06/18/2016 14:40:Amena Felipe RN) Muff Winder: Naval (06/18/2016 14:40:Amena Felipe RN) Feeding Preference: Breast (06/18/2016 14:40:Amena Felipe RN) Benefit of Breast Feed Discussed: Yes (06/18/2016 14:40:Amena Felipe RN) Circumcision: Yes (06/18/2016 14:40:Amena Felipe RN) Classes Attended: Yes (06/18/2016 14:40:Amena Felipe RN) Tubal Ligation: No (06/18/2016 14:40:Amena Felipe RN) Tubal Authorization Signed: N/A (06/18/2016 14:40:Amena Felipe RN) Consent: N/A (06/18/2016 14:40:Amena Felipe RN) Consent Signed: N/A (06/18/2016 14:40:Amena Felipe RN) Pain Management Plans: Natural; Medications (06/18/2016 14:40:Amena Felipe RN) Plans for Labor and Delivery: None (06/18/2016 14:40:Amena Felipe RN) Support Person: Lucia Solis (06/18/2016 14:40:Amena Felipe RN) Support Person Relationship: (06/18/2016 14:40:Amena Felipe RN) Cultural/Spritual Practice: No (06/18/2016 14:40:Amena Felipe RN) Spir/Cult Dietary Needs: No (06/18/2016 14:40:Amena Felipe RN) LIVING SITUATION/DISCHARGE PLAN Living Arrangements: House (06/18/2016 14:40:Amena Felipe RN) Adequate Access to:: Electric; Heat; Refrigeration; Plumbing/Running water; Phone; Transportation (06/18/2016 14:40:Amena Felipe RN) WIC Program: Yes (06/18/2016 14:40:Amena Felipe RN) Discharge Steam Tank Operator Person: (06/18/2016 14:40:Amena Felipe RN) Person to Help after Discharge: (06/18/2016 14:40:Amena Felipe RN) Currently Using Commun Resources: No (06/18/2016 14:40:Amena Felipe RN) Outside Agency/Respiratory Director: No (06/18/2016 14:40:Amena Felipe RN) Car Seat for Discharge: Yes (06/18/2016 14:40:Amena Felipe RN) Adoption Requested: No (06/18/2016 14:40:Amena Felipe RN) Pt Contact w/ Post : N/A (06/18/2016 14:40:Amena Felipe RN) LABS Blood Type: O Positive (06/18/2016 14:40:Amena Felipe RN) Antibody Screen: Negative (06/18/2016 14:40:Amena Felipe RN) Rho(G) this : Not Applicable (06/18/2016 14:40:Amena Felipe RN) Hemoglobin: 12.3 (07/15/2016 05:45:QS system process) Hematocrit: 35.7 L (07/15/2016 05:45:QS system process) MCV: 89 (07/15/2016 05:45:QS system process) Group Beta Strep: Negative (06/18/2016 14:40:Amena Felipe RN) Gonorrhea: Negative (06/18/2016 14:40:Amena Felipe RN) Chlamydia: Negative (06/18/2016 14:40:Amena Felipe RN) RPR/VDRL: Nonreactive (06/18/2016 14:40:Amena Felipe RN) HIV Exposure Test: Negative (06/18/2016 14:40:Amena Felipe RN) Hepatitis B: Negative (06/18/2016 14:40:Amena Felipe RN) Rubella: Immune (06/18/2016 14:40:Amena Felipe RN) OB/PREVIOUS HISTORY Previous Procedures: None (06/18/2016 14:40:Una Masters RN) Current Procedures: Ultrasound (06/18/2016 14:40:Amena Felipe RN) History of Previous : No (06/18/2016 14:40:Amena Felipe RN) History of Gestational Diabetes: No (06/18/2016 14:40:Amena Felipe RN) History of PIH: No (06/18/2016 14:40:Amena Felipe RN) History of Incompetent Cervix: No (06/18/2016 14:40:Amena Felipe RN) History of Placenta Previa/Abrup: No (06/18/2016 14:40:Amena Felipe RN) History of Macrosomia: No (06/18/2016 14:40:Amena Felipe RN) History of IUGR: Yes (06/18/2016 14:40:Amena Felipe RN) History of Hemorrhage: No (06/18/2016 14:40:Amena Felipe RN) History of Loss/Stillborn: No (06/18/2016 14:40:Amena Felipe RN) History of : No (06/18/2016 14:40:Amena Felipe RN) History of D (Rh) Sensitization: No (06/18/2016 14:40:Amena Felipe RN) History Recurrent Loss/Stillborn: No (06/18/2016 14:40:Amena Felipe RN) History Depression/PP Depression: No (06/18/2016 14:40:Amena Felipe RN) History of Uterine Anomaly/FABIÁN: No (06/18/2016 14:40:Amena Felipe RN) History of Infertility: No (06/18/2016 14:40:Amena Felipe RN) History of ART Treatment: No (06/18/2016 14:40:Amena Felipe RN) History of FABIÁN: No (06/18/2016 14:40:Amena Felipe RN) Comments Obstetrical History: G1: Current, IUGR 7% (06/18/2016 14:40:Amena Felipe RN) MEDICAL HISTORY Med Hx Diabetes: No (06/18/2016 14:40:Amena Felipe RN) Med Hx Hypertension: No (06/18/2016 14:40:Amena Felipe RN) Med Hx Heart Disease: No (06/18/2016 14:40:Amena Felipe RN) Med Hx Autoimmune Disorder: No (06/18/2016 14:40:Amena Felipe RN) Med Hx Kidney Disease/UTI: No (06/18/2016 14:40:Amena Felipe RN) Med Hx Neurologic/Epilepsy: No (06/18/2016 14:40:Amena Felipe RN) Med Hx Psychiatric Disorders: No (06/18/2016 14:40:Amena Felipe RN) Med Hx Hepatitis/Liver Disease: No (06/18/2016 14:40:Amena Felipe RN) Med Hx Varicosities/Phlebitis: No (06/18/2016 14:40:Amena Felipe RN) Med Hx Thyroid Dysfunction: No (06/18/2016 14:40:Amena Felipe RN) Med Hx Trauma/Violence: No (06/18/2016 14:40:Amena Felipe RN) Med Hx Blood Transfusion: No (06/18/2016 14:40:Amena Felipe RN) Med Hx Pulmonary (Asthma,TB): No (06/18/2016 14:40:Amena Felipe RN) Med Hx Breast: No (06/18/2016 14:40:Amena Felipe RN) Med Hx COMPANY ACCOUNTANT Surgery: No (06/18/2016 14:40:Amena Felipe RN) Med Hx Hospitalization/Surgery: No (06/18/2016 14:40:Amena Felipe RN) Med Hx Anesthetic Complications: No (06/18/2016 14:40:Amena Felipe RN) Med Hx Abnormal Pap Smear: No (06/18/2016 14:40:Amena Felipe RN) Other Medical Diseases: Yes (06/18/2016 14:40:Amena Felipe RN) Med Hx Significant Family Hx: No (06/18/2016 14:40:Amena Felipe RN) Details of Med/Surg Hx: Other: PCOS (Annotations: Data stored by N on behalf of user) (06/18/2016 14:40:Amena Felipe RN) INFECTIOUS HISTORY Inf Hx Gonorrhea: No (06/18/2016 14:40:Amena Felipe RN) Inf Hx Chlamydia: No (06/18/2016 14:40:Amena Felipe RN) Inf Hx Syphilis: No (06/18/2016 14:40:Amena Felipe RN) Inf Hx HIV/AIDS: No (06/18/2016 14:40:Amena Felipe RN) Inf Hx Human Papilloma Virus: No (06/18/2016 14:40:Amena Felipe RN) Inf Hx Pt/Partner Genital Herpes: No (06/18/2016 14:40:Amena Felipe RN) Inf Hx Tuberculosis/Exposure: No (06/18/2016 14:40:Amena Felipe RN) Inf Hx Hepatitis B,C: No (06/18/2016 14:40:Amena Felipe RN) Inf Hx Rash or Viral Illness: No (06/18/2016 14:40:Amena Felipe RN) GENETIC HISTORY Gen Hx Age >=35 at [facility]MIN: No (06/18/2016 14:40:Amena Felipe RN) Gen Hx Thalassemia: No (06/18/2016 14:40:Amena Felipe RN) Gen Hx Congenital Heart Defect: No (06/18/2016 14:40:Amena Felipe RN) Gen Hx Neural Tube Defect: No (06/18/2016 14:40:Amena Felipe RN) Gen Hx Down's Syndrome: No (06/18/2016 14:40:Amena Felipe RN) Gen Hx [place]-Sachs: No (06/18/2016 14:40:Amena Felipe RN) Gen Hx Ch[place]: No (06/18/2016 14:40:Amena Felipe RN) Gen Hx Familial Dysautonomia: No (06/18/2016 14:40:Amena Felipe RN) Gen Hx Sickle Cell Disease/Trait: No (06/18/2016 14:40:Amena Felipe RN) Gen Hx Hemophilia/Blood Disorder: No (06/18/2016 14:40:Amena Felipe RN) Gen Hx Muscular Dystrophy: No (06/18/2016 14:40:Amena Felipe RN) Gen Hx Cystic Fibrosis: No (06/18/2016 14:40:Amena Felipe RN) Gen Hx Huntingtons Chorea: No (06/18/2016 14:40:Amena Felipe RN) Gen Hx Mental Retardation/Autism: No (06/18/2016 14:40:Amena Feilpe RN) Gen Hx Tested for Fragile X: No (06/18/2016 14:40:Amena Felipe RN) Gen Hx Other Inher/Chromosomal: No (06/18/2016 14:40:Amena Felipe RN) Gen Hx Maternal Metabolic DO: No (06/18/2016 14:40:Amena Felipe RN) Gen Hx Pt Father or FOB Defect: No (06/18/2016 14:40:Amena Felipe RN) Gen Hx Other Genetic History: Yes (06/18/2016 14:40:Amena Felipe RN) Gen Hx Drugs/Meds since LMP: No (06/18/2016 14:40:Amena Felipe RN) Details of Genetic History: Other: Extensive history of epilepsy in siblings/cousins etc (06/18/2016 14:40:Amena Felipe RN)
--- NOTE | 2016-07-16 06:15 | L&D Care Plan ---
LD CARE PLANS Datetime Report Generated by CPN: 07/16/2016 06:15 Datetime: 07/15/2016 06:29 Pain State: Risk For (Marni Rojas RN) Related To: Labor and Delivery Process; Treatment and Procedures; Post (Marni Rojas RN) Goal(s): Patients Pain will be Assessed and Managed; Patient will Verbalize Adequate Relief of Pain or the Ability to Twining with Current Pain (Marni Rojas RN) Interventions: Assess Pain Severity on Scale of 0 (None) to 5 (Severe); Assess Type, Location and Intensity of Pain Each Time Client Reports Discomfort and Notify Provider if Unusal Pain Develops; Encourage Proper Breathing and Relaxation Techniques; Offer Alternatives Such as Repositioning, Calm Environment, Massages, Diversional Activities, Ice Pack, Splinting, and Ambulation; Administer Analgesics as Ordered; Assist with Epidural Placement as Appropriate; Evaluate Therapeutic Effectiveness of Medication and Treatments (Marni Rojas RN) Outcome: Patient will Report Absence or Relief of Pain Consistent with Established Pain Goal (Marni Rojas RN) Status: Ongoing (Marni Rojas RN) Outcome: Patient will have a Decrease in Signs and Symptoms of Discomfort (Marni Rojas RN) Status: Ongoing (Marni Rojas RN) Outcome: Pain will be Controlled During Procedures (Marni Rojas RN) Status: Ongoing (Marni Rojas RN) Anxiety State: Risk For (Marni Rojas RN) Related To: Labor and Delivery Process; Perceived or Actual Threat to ; Fear of Unknown; Situational Crisis; Medical Interventions; Significant Life Event (Marni Rojas RN) Goal(s): Patient will have Decreased Anxiety and be able to Function at Acceptable Levels (Marni Rojas RN) Interventions: Assess Verbal and Nonverbal Behavioral Indicators of Anxiety; Assist Patient to Identify and Verbalize Symptoms of Anxiety; Identify and Demonstrate Techniques to Control Anxiety; Assist Patient with Coping Mechanisms to Manage Anxiety; Provide Theraputic Touch for the Patient; Explain to Patient, Using a Calm Reassuring Approach and Nonmedical Terms, All Activities, Procedures, and Concerns; Instruct Patient and Family about Post Discharge Care, Limitations, Symptoms to Report and Resources Available (Marni Rojas RN) Outcome: Patient will Identify, Verbalize and Demonstrate Techniques to Control Anxiety (Marni Rojas RN) Status: Ongoing (Marni Rojas RN) Outcome: Patient's Posture, Facial Expressions, Gestures and Activity Level will Reflect Decreased Anxiety (Marni Rojas RN) Status: Ongoing (Marni Rojas RN) Outcome: Patient will Verbalize a Sense of Control and/or Acceptance of the Situation (Marni Rojas RN) Status: Ongoing (Marni Rojas RN) Outcome: Patient will Identify and Utilize Support Person (Marni Rojas RN) Status: Ongoing (Marni Rojas RN) Knowledge Deficit State: Risk For (Marni Rojas RN) Related To: Labor and Delivery Process; Treatment and Procedures; Impending Alterations in Family Dynamics; Feeding and Infant Care; Community Resources and Available Support Mechanisms (Marni Rojas RN) Goal(s): Patient will Accurately Verbalize Understanding of Plan of Care and Treatment; Patient and Family will Accurately Verbalize Understanding of the Disease Process (Marni Rojas RN) Interventions: Assess Motivation and Willingness of Patient/Family to Learn; Assess Preferred Learning Mode: One to One Instruction, Reading, Videos, Group Discussion or Demonstration; Assess Barriers to Learning: Pain, Emotional State, Language Barrier, Cognitive Impairment, Visual or Hearing Deficits; Assess Patient and Family Knowledge of Disease Process, Medications and Treatment; Discuss Therapy and/or Treatment Options, Describe Rationale Behind Management, Therapy and Treatment Recommendations; Instruct Patient and Family on Signs and Symptoms to Report; Instruct Patient and Family on Medication Effects and Side Effects; Provide Appropriate and Timely Education Using Multiple Techniques; Provide Patient and Family with Support Group Information and Resources; Give Clear and Thorough Explanations and Demonstrations (Marni Rojas RN) Outcome: Patient and Family will Verbalize Understanding of Condition, Treatment and Signs and Symptoms to Report (Marni Rojas RN) Status: Ongoing (Marni Rojas RN) Outcome: Patient will Identify Perceived Learning Needs and Express Motivation to Learn (Marni Rojas RN) Status: Ongoing (Marni Rojas RN) Outcome: Patient will Verbalize Understanding of Desired Content, and/or Performs Desired Skill Prior to Discharge (Marni Rojas RN) Status: Ongoing (Marni Rojas RN) Infection State: Risk For (Marni Rojas RN) Related To: Prolonged Labor or Induction; Premature/Prolonged Rupture of Membranes; Invasive Procedures (Marni Rojas RN) Goal(s): The Patient will be Free of Infection, Vital Signs Stable and Lab Work within Normal Parameters (Marni Rojas RN) Interventions: Instruct and Reinforce Proper Handwashing, Hygiene, and Care Techniques to Patient and Family; Monitor Vital Signs; Monitor Patient for the Following Signs of Infection: Fever, Abdominal Tenderness, Unusual Discharge; Monitor Aminiotic Fluid, Urine and Lochia for Color and Odor; Observe Wounds, Incisions and Invasive Line Sites for Redness, Drainage and Edema; Assess IV Sites per Hospital Policy; Monitor Lab and Test Results and Notify Provider of Abnormal Findings; Assess Nutritional Status and Promote Good Nutrition (Marni Rojas RN) Outcome: Patient will Remain Free of Infection (Marni Rojas RN) Status: Ongoing (Marni Rojas RN) Outcome: Infection will be Recognized Early to Allow for Prompt Treatment (Marni Rojas RN) Status: Ongoing (Marni Rojas RN) Outcome: Patient will have Vital Signs Within Expected Range (Marni Rojas RN) Status: Ongoing (Marni Rojas RN) Injury State: Risk For (Marni Rojas RN) Related To: Labor and Delivery Process (Marni Rojas RN) Goal(s): Patient will Remain Free from Injury (Marni Rojas RN) Interventions: Monitoring as per Hospital Protocol; Assess Neurological Status; Perform Risk Assessment of Patients with Induction and ; Perform Fall Risk Assessment and Prevention per Hospital Protocol; Perform DVT Risk Assessment and Prophylaxis per Hospital Protocol; Ensure that Oxygen, Suction, and Resuscitation Medications and Equipment are Readily Available; Confirm Patient ID Prior to Procedure(s) and Medication Administration per Hospital Policy (Marni Rojas RN) Outcome: Successful Fall Risk Prevention (Marni Rojas RN) Status: Ongoing (Marni Rojas RN) Outcome: Patient will Deliver without Adverse Sequela (Marni Rojas RN) Status: Ongoing (Marni Rojas RN) Outcome: Patient's Neurological Status will Remain Stable (Marni Rojas RN) Status: Ongoing (Marni Rojas RN)
[2016-07-16 07:50] LABS: HEMATOCRIT 30.7 % (36.0-47.0); HGB HCT DIFFERENCE -0.1; MEAN CORPUSCULAR HEMOGLOBIN 29.9 pg (27.0-33.4); MEAN CORPUSCULAR HGB CONC 33.1 g/dL (32.0-36.0); MEAN CORPUSCULAR VOLUME 90 fl (80-97); RED BLOOD COUNT 3.41 10^6/uL (3.72-5.28); RED CELL DISTRIBUTION WIDTH 13.8 % (11.5-14.0); WHITE BLOOD COUNT 12.3 10^3/uL (4.0-10.5)
[2016-07-16 08:05] LABS: HEMOGLOBIN 10.2 g/dL (12.0-15.5)
[2016-07-16] MEDS: FERROUS SULFATE 325 MG TABLET PO SCH ×2 (09:21→17:21)
[2016-07-16] MEDS: SENNOSIDES/DOCUSATE 8.6-50 MG 1 EACH TABLET PO SCH (09:21)
[2016-07-16] MEDS: PRENATAL VITAMIN W-O CA NO5/FE FUMARATE/FA CAPSULE PO SCH (09:21)
[2016-07-16] MEDS: DOCUSATE SODIUM 100 MG CAPSULE PO SCH ×2 (09:21→17:21)
--- NOTE | 2016-07-16 09:55 | PDOC PROGRESS REPORT ---
Subjective-OB Subjective: Post Delivery Day: 21 year old. Denies any needs at this time Physical Exam (OB) Vital Signs: Temp Pulse Resp BP Pulse Ox 97.6 F 86 15 111/64 100 07/16/16 07:57 07/16/16 07:57 07/16/16 07:57 07/16/16 07:57 07/16/16 07:57 Intake & Output 07/15/16 07/16/16 07/17/16 06:59 06:59 06:59 Output Total 300 Balance -300 Weight 102.85 kg - Lochia Lochia Amount: Moderate 25-50 ml Lochia Color: Rubra/Red - Abdomen Description: Soft, Round Hernia Present: No Bowel Sounds: Normoactive Flatus Presence: Present Stool: Yes Fundal Description: Firm, Midline Fundal Height: u/u - u/2 Objective-Diagnostic Laboratory: 07/16/16 07:20 07/16/16 07:20 WBC 12.3 H RBC 3.41 L Hgb 10.2 L D Hct 30.7 L MCV 90 MCH 29.9 MCHC 33.1 RDW 13.8 Plt Count 198
[2016-07-16] MEDS: ACETAMINOPHEN WITH CODEINE #3 TABLET PO PRN (16:25)
[2016-07-17] MEDS: ACETAMINOPHEN WITH CODEINE #3 TABLET PO PRN (00:16)
[2016-07-17] MEDS: IBUPROFEN 800 MG TABLET PO SCH (06:11)
[2016-07-17 08:18] VITALS: BP 118/56
--- NOTE | 2016-07-17 10:45 | PDOC DISCHARGE SUMMARY ---
Final Diagnosis Discharge Date: 07/17/16 - Final Diagnosis (1) Acute blood loss anemia Is this a current diagnosis for this admission?: Yes (2) Vaginal delivery Is this a current diagnosis for this admission?: Yes Discharge Data - Discharge Medication Home Medications: Pnv No.122/Iron/Folic Acid [ Multi Tablet] 1 each PO DAILY 06/18/16 Amoxicillin 1 tab PO DAILY 07/15/16 Docusate Sodium [Colace 100 mg Capsule] 100 mg PO BID #60 capsule 07/17/16 Ferrous Sulfate [Feosol 325 mg Tablet] 325 mg PO BID #30 tablet 07/17/16 Ibuprofen [Motrin 800 mg Tablet] 800 mg PO Q8 #60 tablet 07/17/16 Gestational Age: 40.5 Reason(s) for Admission: Induction of Labor Procedures: NST Intrapartum Procedure(s): Spontaneous Vaginal Delivery Complication(s): Laceration-Vaginal Laceration-Degree: 2nd - Data Baby 1 Male at 1 minute: 9 at 5 minutes: 9 Weight: 3165 kg Home with Mother: Yes Complications: No - Diagnosis Test Laboratory: Temp Pulse Resp BP Pulse Ox 97.4 F 96 17 118/56 L 100 07/17/16 09:54 07/17/16 09:54 07/17/16 09:54 07/17/16 07:53 07/17/16 09:54 07/15/16 07/15/16 07/16/16 05:28 05:45 07:20 RBC 4.03 3.41 L Hgb 12.3 10.2 L D Hct 35.7 L 30.7 L Urine Opiates Screen NEGATIVE - Discharge information/Instructions Discharge Activity: Activity As Tolerated, No Lifting Over 10 Pounds, Pelvic Rest, No tub bath Discharge Diet: Regular Disposition: HOME, SELF-CARE Follow up with: [facility] in: 4, Weeks
[2016-07-17] MEDS: FERROUS SULFATE 325 MG TABLET PO SCH (11:01)
[2016-07-17] MEDS: DOCUSATE SODIUM 100 MG CAPSULE PO SCH (11:01)
[2016-07-17] MEDS: PRENATAL VITAMIN W-O CA NO5/FE FUMARATE/FA CAPSULE PO SCH (11:01)
[2016-07-17] MEDS: SENNOSIDES/DOCUSATE 8.6-50 MG 1 EACH TABLET PO SCH (11:02)
== END 2016-07-17 13:19 | disposition home or self-care (01) | DRG 774 ==
LOC: LR 07-15 05:17 → 2S 07-15 17:15
PROVIDERS: ADMIT Obstetrics & Gynecology; ATTEND Obstetrics & Gynecology
PROC: 10E0XZZ Delivery of Products of Conception, External Approach (ICD-10-PCS; principal; 2016-07-15)
PROC: 3E033VJ Introduction of Other Hormone into Peripheral Vein, Percutaneous Approach (ICD-10-PCS; 2016-07-15)
PROC: 0KQM0ZZ Repair Perineum Muscle, Open Approach (ICD-10-PCS; 2016-07-15)
PROC: 0UQMXZZ Repair Vulva, External Approach (ICD-10-PCS; 2016-07-15)
DX: O48.0 Post-term pregnancy (principal); O72.2 Delayed and secondary postpartum hemorrhage; D62 Acute posthemorrhagic anemia; O64.5XX0 Obstructed labor due to compound presentation, not applicable or unspecified; O99.02 Anemia complicating childbirth; O70.1 Second degree perineal laceration during delivery; O71.82 Other specified trauma to perineum and vulva; O76 Abnormality in fetal heart rate and rhythm complicating labor and delivery; Z3A.40 40 weeks gestation of pregnancy; Z37.0 Single live birth
CPT/HCPCS: 36415; 80307; 81005; 85025; 85027; 86592; 86850; 86900; 86901; J2300; J2550; J2590; J3490